=== PATIENT | male | born 1975 | race African-American/Black ===

== ENCOUNTER 2017-03-19 20:02 | Emergency (ER) | payer MEDICARE ==
[~2017-03-19] VITALS: Ht 190.5 cm; Wt 118.8 kg
[~2017-03-19 20:02] MED LIST: ACARBOSE25 MG PO; AMBIEN10 MG PO; ASPIRIN81 MG PO; BACTRIM 400-801 EACH PO; CALCIUM CARBON200 MG PO; CELLCEPT500 MG PO; CLONIDINE HCL0.3 MG PO; COREG12.5 MG PO; HUMALOG100 UNIT/1 SC; HUMALOG100 UNIT/1 SQ; HUMALOG100 UNIT/3 SQ; HUMULIN R100 UNIT/2 SQ; HYDRALAZINE HCL25 MG PO; HYDROCODON-ACE1 EA12 PO; LEVEMIR100 UNIT/1 SQ; NEXIUM10 MG PO; NEXIUM40 MG PO; NORCO 7.5-3251 EACH PO; OXYCONTIN10 MG PO; PREDNISONE5 MG PO; PROGRAF1 MG PO; TUMS300 MG PO; ZOLPIDEM TARTRA10 MG PO
[2017-03-19] MEDS ORDERED: DIATRIZOATE MEGL/DIATRIZOA SOD 30 ML BTL PO ONE (21:40)
[2017-03-19 22:45] LABS: BASOPHILS % 0.3 % (0.0-1.0); EOSINOPHILS # (AUTO) 0.2 (0.0-0.4); EOSINOPHILS % 3.1 % (0.0-6.0); HEMATOCRIT 37.9 % (38.2-49.6); HEMOGLOBIN 12.8 g/dL (14.0-18.0); LYMPHOCYTES # (AUTO) 1.5 (1.0-3.2); LYMPHOCYTES % 22.6 % (18.0-39.1); MEAN CORPUSCULAR HEMOGLOBIN 28.3 pg (28-32); MEAN CORPUSCULAR HGB CONC 33.8 g/dL (31-35); MEAN CORPUSCULAR VOLUME 83.8 fL (81-99); MONOCYTES # (AUTO) 0.6 (0.2-0.8); MONOCYTES % 9.1 % (4.4-11.3); NEUTROPHILS # (AUTO) 4.3 (2.1-6.9); NEUTROPHILS % 64.5 % (38.7-80.0); PLATELET COUNT 167 x10e3/uL (140-360); RED BLOOD COUNT 4.52 x10e6/uL (4.3-5.7); RED CELL DISTRIBUTION WIDTH 12.3 % (11.7-14.4)
[2017-03-19 22:48] LABS: INR 0.91; PROTHROMBIN TIME 12.7 seconds (11.9-14.5)
[2017-03-19 22:49] LABS: PARTIAL THROMBOPLASTIN TIME 26.4 seconds (23.8-35.5)
[2017-03-19 22:57] LABS: ALBUMIN 4.2 g/dL (3.5-5.0); ALBUMIN/GLOBULIN RATIO 1.1 (0.8-2.0); CALCIUM 8.4 mg/dL (8.4-10.2); CREATININE, SERUM 2.01 mg/dL (0.72-1.25)
[2017-03-19 23:44] LABS: BILIRUBIN,URINE NEGATIVE (NEGATIVE); KETONES,URINE NEGATIVE (NEGATIVE); LEUKOCYTE ESTERASE ,URINE NEGATIVE (NEGATIVE); NITRITE,URINE NEGATIVE (NEGATIVE); URINE UROBILINOGEN 0.2 mg/dL (0.2 - 1)
[2017-03-19 23:50] LABS: CLARITY,URINE CLEAR (CLEAR); COLOR,URINE YELLOW (YELLOW); PROTEIN,URINE DIPSTICK 1+ (NEGATIVE)
--- NOTE | 2017-03-19 23:52 | Diagnostic Imaging Report ---
EXAM: CT Abdomen and Pelvis WITHOUT contrast INDICATION: Incarcerated hernia COMPARISON: None. TECHNIQUE: Abdomen and pelvis were scanned utilizing a multidetector helical scanner from the lung base to the pubic symphysis without administration of IV contrast. Absence of intravenous contrast decreases sensitivity for detection of focal lesions and vascular pathology. Coronal and sagittal reformations were obtained. Routine protocol was performed. IV CONTRAST: None. ORAL CONTRAST: Gastrografin RADIATION DOSE: Total DLP: 807.46 mGy*cm Estimated effective dose: (DLP x 0.015 x size factor) mSv COMPLICATIONS: None FINDINGS: LINES and TUBES: None. LOWER THORAX: There is evidence of bilateral alveolar groundglass opacities with areas of mosaic attenuation. HEPATOBILIARY: No focal hepatic lesions. No biliary ductal dilation. GALLBLADDER: No radio-opaque stones or sludge. Gallbladder is contracted. No wall thickening. SPLEEN: No splenomegaly. PANCREAS: No focal masses or ductal dilatation. ADRENALS: No adrenal nodules KIDNEYS/URETERS: The kidneys are hypoplastic/atrophic. There is a left pelvic kidney. No hydronephrosis. No cystic or solid mass lesions. No stones. GI TRACT: No abnormal distention, wall thickening, or evidence of bowel obstruction. Appendix is normal. PELVIC ORGANS/BLADDER: Unremarkable. LYMPH NODES: No lymphadenopathy. VESSELS: There is mild atherosclerotic disease in the aorta and major arterial branches. PERITONEUM / RETROPERITONEUM: Evidence of right pelvic retroperitoneal postsurgical changes most likely from prior right renal pelvic transplant. BONES: There are degenerative changes in the lower lumbar spine. SOFT TISSUES: Area of focal skin thickening noted in the left lower quadrant best seen on series 2, image 72 compatible with cellulitis. There is a right inguinal fluid reservoir connected to a short visualized tubing most likely for erectile dysfunction device not visualized. IMPRESSION: 1. Groundglass opacities with mosaic attenuation the lung bases compatible with edema. 2. No evidence of incarcerated hernia. 3. Right inguinal bulging most likely represents a reservoir for an erectile dysfunction device. 4. Chronic medical renal disease without evidence of left pelvic transplant kidney. Signed by: Dr. Braeden Leal M.D. on 03/19/2017 11:48 PM
[2017-03-20 00:07] LABS: EPITHELIAL CELLS,URINE FEW /LPF; RBC,URINE 0-5 /HPF (0-5); WBC,URINE (MAN) 0-5 /HPF (0-5)
== END 2017-03-20 01:15 | disposition home or self-care (01) ==
LOC: ER 20:02
DX: T83.9XXA Unspecified complication of genitourinary prosthetic device, implant and graft, initial encounter (principal); R10.31 Right lower quadrant pain; E11.65 Type 2 diabetes mellitus with hyperglycemia; D86.9 Sarcoidosis, unspecified; Z94.0 Kidney transplant status
CPT/HCPCS: 36415; 74176; 80053; 81001; 82150; 83690; 85025; 85610; 85730; 87086; 99284

== ENCOUNTER → 2017-07-21 | Outpatient (CLI) | payer MEDICARE ==
[~2017-07-21] MED LIST changes: +FENTANYL CITRATE/PF 100MCG/2 ML INJ ONE; +FLUMAZENIL 0.5MG/ 5ML VIAL ONE; +INSULIN REGULAR, HUMAN 100 UNIT/1 ML 3ML VIAL ONE; +LACTATED RINGER'S 1,000 ML ONE; +MIDAZOLAM HCL 5MG/ML 2ML VIAL ONE; +PROPOFOL IV EMULSION 10 MG/ML 20 ML VIAL ONE
--- NOTE | 2017-07-21 14:36 | Diagnostic Imaging Report ---
History: Low back pain Comparison studies: CT abdomen 03/19/2017 Technique: Sagittal, coronal and axial T2 , sagittal T1 and IR, axial spin density oblique. Intravenous contrast: None Findings: Number of lumbar vertebral bodies:5 Alignment: Straightening of the normal lordosis. Grade 1 retrolisthesis of L5 over S1. No scoliosis. Soft tissues: No T2 hyperintense inflammatory changes. Atrophic changes of the bilateral kidneys. Paraspinal muscles: No signal abnormalities. No atrophy. Lower thoracic cord:Normal in signal and morphology. The tip of the conus is at T12-L1. Cauda equina: No masses. No arachnoiditis. Vertebrae: Normal in height and signal intensity. No compression fractures, infection or neoplasm. Degenerative changes: L1-L2: No abnormalities. L2-L3: No abnormalities. L3-L4: No abnormalities. L4-L5: Disc degeneration with loss of T2 signal. Mild diffuse disc bulge, mild facet hypertrophy and ligamentum flavum thickening results in no significant canal stenosis and mild left foraminal narrowing. L5-S1:None Disc degeneration with loss of T2 signal, decreased intervertebral space and mild Modic type I changes. Diffuse disc bulge with superimposed central disc protrusion and mild bilateral facet hypertrophy results in mild canal stenosis and severe bilateral foraminal narrowing more prominent on the left. Trace of fluid at the bilateral facet joints. Additional findings: None IMPRESSION: Severe bilateral foraminal narrowing at L5-S1 secondary to grade 1 retrolistheses, diffuse disc bulge and mild facet hypertrophy. Mild synovitis changes and moderate disc degeneration at L5-S1 with associated mild Modic type I change. Other mild degenerative changes as described above. Signed by: DR Bib Treadwell M.D. on 07/21/2017 2:32 PM
== END ==
LOC: MRI 07-08 09:58
PROVIDERS: ATTEND Anesthesiology Pain Medicine
DX: M43.07 Spondylolysis, lumbosacral region (principal); M54.5 Low back pain
CPT/HCPCS: 36415; 72148; 82948; J2250; J7120

== ENCOUNTER → 2018-12-08 | Outpatient (CLI) | payer MEDICARE ==
[~2018-12-08] MED LIST changes: -FENTANYL CITRATE/PF 100MCG/2 ML INJ ONE; -FLUMAZENIL 0.5MG/ 5ML VIAL ONE; -INSULIN REGULAR, HUMAN 100 UNIT/1 ML 3ML VIAL ONE; -LACTATED RINGER'S 1,000 ML ONE; +LORAZEPAM INJ 2 MG/ML VIAL ONE; -MIDAZOLAM HCL 5MG/ML 2ML VIAL ONE; -PROPOFOL IV EMULSION 10 MG/ML 20 ML VIAL ONE
== END ==
LOC: MRI 07:03
PROVIDERS: ATTEND Orthopaedic Surgery Sports Medicine
DX: M25.511 Pain in right shoulder (principal)
CPT/HCPCS: J2060

== ENCOUNTER → 2018-12-20 | Outpatient (CLI) | payer MEDICARE ==
[~2018-12-20] MED LIST changes: +LACTATED RINGER'S 1,000 ML ONE; -LORAZEPAM INJ 2 MG/ML VIAL ONE; +MIDAZOLAM HCL 5MG/ML 2ML VIAL ONE; +PROPOFOL IV EMULSION 10 MG/ML 20 ML VIAL ONE; +SODIUM CHLORIDE 0.9% 500ML 0 ML ONE
--- NOTE | 2018-12-20 14:48 | Diagnostic Imaging Report ---
TECHNIQUE: Magnetic resonance imaging of the RIGHT SHOULDER was performed WITHOUT injected contrast. COMPARISON: None available. HISTORY: Right shoulder pain FINDINGS: MUSCLES AND TENDONS: Rotator Cuff: Tendons: Partial-thickness articular sided tearing of the supraspinatus tendon. No full-thickness tear. Muscles: No focal muscle atrophy. Biceps Tendon: Long head biceps tenodesis. GLENOHUMERAL JOINT: Glenoid Labrum: Fraying of the superior and posterior labrum. Articular Cartilage: Partial-thickness cartilage loss AC JOINT AND ACROMION: Mild hypertrophic degenerative changes of the acromioclavicular joint. Subacromial spurring. BONE: No focal or infiltrative bone marrow replacing abnormality. No acute fracture. SOFT TISSUES: Subacromial subdeltoid bursal fluid. Infiltration of the rotator cuff interval and axillary recess. IMPRESSION: Supraspinatus partial-thickness articular sided tearing. No full-thickness tear or atrophy. Findings of adhesive capsulitis. Signed by: Dr. Chester Marks M.D. on 12/20/2018 2:45 PM
== END ==
LOC: MRI 09:49 → EDSTATUS 12:00
PROVIDERS: ATTEND Psychiatry & Neurology Neurology
DX: M25.511 Pain in right shoulder (principal)
CPT/HCPCS: 36415; 73221; 82948; J2704; J7121; J2250; J7040

== ENCOUNTER → 2019-01-04 | Day surgery (SDC) | payer MEDICARE ==
[2018-07-10 12:50] LABS: BASOPHILS % 0.3 % (0.0-1.0); EOSINOPHILS # (AUTO) 0.2 (0.0-0.4); EOSINOPHILS % 3.3 % (0.0-6.0); HEMATOCRIT 34.1 % (38.2-49.6); HEMOGLOBIN 11.8 g/dL (14.0-18.0); LYMPHOCYTES # (AUTO) 1.1 (1.0-3.2); LYMPHOCYTES % 17.1 % (18.0-39.1); MEAN CORPUSCULAR HEMOGLOBIN 28.9 pg (28-32); MEAN CORPUSCULAR HGB CONC 34.6 g/dL (31-35); MEAN CORPUSCULAR VOLUME 83.4 fL (81-99); MONOCYTES # (AUTO) 0.7 (0.2-0.8); MONOCYTES % 10.5 % (4.4-11.3); NEUTROPHILS # (AUTO) 4.5 (2.1-6.9); NEUTROPHILS % 68.2 % (38.7-80.0); PLATELET COUNT 154 x10e3/uL (140-360); RED BLOOD COUNT 4.09 x10e6/uL (4.3-5.7); RED CELL DISTRIBUTION WIDTH 12.2 % (11.7-14.4)
[~2019-01-04] MED LIST changes: +FENTANYL CITRATE/PF 100MCG/2 ML INJ ONE; -LACTATED RINGER'S 1,000 ML ONE; +LIDOCAINE HCL 2% LOCAL INJ 5 ML SDV VIAL INJ ONE; +MIDAZOLAM HCL 2 MG/2 ML VIAL ONE; -MIDAZOLAM HCL 5MG/ML 2ML VIAL ONE; -PROPOFOL IV EMULSION 10 MG/ML 20 ML VIAL ONE; +PROPOFOL IV EMULSION 10 MG/ML 50 ML VIAL ONE; -SODIUM CHLORIDE 0.9% 500ML 0 ML ONE
--- OUTSIDE RECORDS SUMMARY | 2019-01-04 08:42 | XMS REPORT | Summary of Care ---
Author Author Nadia Blue M.A. Organization Unknown Address Unknown Phone Unavailable Care Team Providers Care Shipping Associate Name Role Phone Nadia Blue M.A. Unavailable Unavailable ARJUN BAEZA MD Unavailable Unavailable [facility] Unavailable Unavailable Unavailable Unavailable Functional Status Name Dates Details Functional status health issues are not documented Status: Name Dates Details Cognitive status health issues are not documented Status: Problems Name Dates Details Other mechanical complication of surgically created arteriovenous fistula (996.1, T82.590A) Status: Active Localized swelling, mass or lump of trunk (R22.2) Status: Active End stage renal disease (585.6, N18.6) Status: Active Renal dialysis device, implant, or graft complication (996.73, T82.9XXA) Status: Active 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, 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: Active Postoperative examination (V67.00, Z09) Status: Active Dysphagia (787.20, R13.10) Status: Active Chronic GERD (530.81, K21.9) Status: Active Medications Name Dates Details Coreg TABS Active cloNIDine HCl TABS * Refills: 0 Active hydrALAZINE HCl TABS * Refills: 0 Active Norvasc 10 MG Oral Tablet * Refills: 0 Active Allergies and Adverse Reactions Name Dates Details Iodine SOLN (Allergy) Status: Active Past Medical History Name Dates Details History of congestive heart disease (V12.59, Z86.79) Status: Resolved History of Diabetes mellitus (250.00, E11.9) Status: Resolved History of End stage renal disease (585.6, N18.6) Status: Resolved History of essential hypertension (V12.59, Z86.79) Status: Resolved History of hyperlipidemia (V12.29, Z86.39) Status: Resolved 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, 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) Status: Resolved History of Postoperative examination (V67.00, Z09) Status: Resolved Personal history of asthma (V12.69, Z87.09) Status: Resolved Procedures Procedure Dates Details GI IRF Modified Esophagus Barium Swallow w/ Speech Therapy [id number] Date: 12-May-2018 History of Arteriovenous Surgery Open Revision Of AV Fistula Completed History of Renal Transplant Completed History of Nephrectomy Completed History of Surgery Vas Deferens Vasectomy Completed History of Creation Of AV Fistula - Nonautogenous Graft Completed History of Ligation Angioaccess Arteriovenous Fistula Completed History of Central IV With Catheters Through Two Tunneled Access Sites Completed History of Creation Of A-V Fistula - Autogenous Graft Completed History of Catheterization Of Extremity Artery For Dialysis Completed History of Catheterization Of Extremity Artery For Dialysis Completed History of Postoperative Arterial Excision Infected Graft In Extremity Completed History of Skin Debridement W/ SQ Tissue & Muscle At Site Of Open Fracture / Dislocation Completed Immunization Name Dates Details Immunizations not documented Family History Name Dates Details Family history of asthma (V17.5, Z82.5) Status: Active Name Dates Details Family history of Renal Failure Status: Active Social History Name Dates Details - Status: Name Dates Details Never smoker Smoker. current status unknown Vital Signs Date Test Result Details No Known Vitals to report Results Date Description Value Details Results not documented Plan of Care Name Dates Details Planned Observations Planned Goals not documented Instructions Name Dates Details Instructions not documented Encounters Appointment; RAFFAELE DAIGLE M.D. Encounter Diagnosis: Problem not documented On: 12-May-2018 9:30
--- OUTSIDE RECORDS SUMMARY | 2019-01-04 08:42 | XMS REPORT ---
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 Allergies, Adverse Reactions, Alerts Allergy Name Allergy Type Status Severity Reaction(s) Onset Date Inactive Date Treating Clinician Comments hydralazine DA Active U 2018-09-27 00:00:00 hydralazine DA Active U 2018-01-22 00:00:00 hydralazine DA Active U 2016-08-24 00:00:00 Medications This patient has no known medications. Results Test Description Test Time Test Comments Text Results Atomic Results Result Comments MRI SHOULDER RIGHT WO 2018-12-20 14:42:00 [facility] [address] [place] [id number] Patient Name: ROSIE NUGENT MR #: [id number] : 1975 Age/Sex: 43/M Req #: [id number] Adm Physician: Ordered by: AMADA CABALLERO MD Report #: [id number] Location: MRI Room/Bed: Procedure: [id number] MRI/MRI SHOULDER RIGHT WO Exam Date: Exam Time: REPORT STATUS: Signed TECHNIQUE: Magnetic resonance imaging of the RIGHT SHOULDER was performed WITHOUT injected contrast. COMPARISON: None available. HISTORY: Right shoulder pain FINDINGS: MUSCLES AND TENDONS: Rotator Cuff: Tendons: Partial-thickness articular sided tearing of the supraspinatus tendon. No full-thickness tear. Muscles: No focal muscle atrophy. Biceps Tendon: Long head biceps tenodesis. GLENOHUMERAL JOINT: Glenoid Labrum: Fraying of the superior and posterior labrum. Articular Cartilage: Partial-thickness cartilage loss AC JOINT AND ACROMION: Mild hypertrophic degenerative changes of the acromioclavicular joint. Subacromial spurring. BONE: No focal or infiltrative bone marrow replacing abnormality. No acute fracture. SOFT TISSUES: Subacromial subdeltoid bursal fluid. Infiltration of the rotator cuff interval and axillary recess. IMPRESSION: Supraspinatus partial-thickness articular sided tearing. No full-thickness tear or atrophy. Findings of adhesive capsulitis. Signed by: Dr. Rosa Chua M.D. on 12/20/2018 2:45 PM Dictated By: ROSA CHUA MD 44 Transcribed By: KHADRA on 12/20/181444 COPY TO: AMADA CABALLERO MD GLUBED 2018-10-31 09:39:00 GLUBED (test code=GLUBED) 166 mg/dL 60-125 [id number] 06:54:00* Test Item Value Reference Range Comments GLUBED (test code=GLUBED) 169 mg/dL 60-125 - XR SHOULDER 2 + V [id number] 08:50:00 FAX: Leslie Escalante MD [phone] [place]: [place] St: REG FAX: Timbo Casillas [phone] Name: ROSIE NUGENT [facility] FSED : 1975 Age/S: 42/M [address] [facility] [address] Unit #: [id number] Loc: [facility] [address] Phys: Timbo Casillas MD [place], [place] [address] Acct: [id number] Dis Date: Status: REG ER PHONE #: Exam Date: 09/27/2018829 FAX #: Reason: shoulder pain EXAMS: CPT CODE: [id number] XR SHOULDER 2 + [place] [address] HISTORY: Shoulder pain. COMPARISON: None available. 3 views of the right shoulder: No acute fracture or dislocation. Shoulder and AC joints are preserved. Scapula, glenoid and coracoid are normal. Soft tissues and mineralization are normal. Visualize d lungs are clear. IMPRESSION: No acute fractu re or dislocation. Joint spaces are preserved. at 0850 Reported and signed by: Bola Azul M.D. CC: Leslie Barlow MD; Timbo Ochoa MD Technologist: Tariq Leon Trnmord Date/Time/By: 09/27/2018 (0850) : By: [email or web address] Orig Print D/T: S: 09/27/2018 (0853) PAGE 1 Signed Report - XR UGI W/AIR W/O [id number] 09:58:00 FAX: Jez Catalan MD [phone] [place]: St: PRE FAX: Leslie Escalante MD [phone] Name: ROSIE NUGENT [facility] : 1975 Age/S: 42/M [address] [facility] Unit #: [id number] Loc: [facility] [place] [address] Phys: Jez Smith MD Acct: [id number] Dis Date: Status: PRE CLI PHONE #: [phone] Exam Date: 07/12/2018909 FAX #: [phone] Reason: DYSPHAGIA EXAMS: CPT CODE: [id number] XR UGI W/AIR W/O [id number] HISTORY: Dysphagia. COMPARISON: CT scan from January 22, 2018. Esophagus demonstrating persistent stricture in the distal third with shouldering of the proximal esophagus at that level. The narrowing is less than 1 cm. Direct visualization is recommended. No esophagitis or ulceration. No reflux. Stomach distended well with free passage of contrast through the pyloric channel. No gastritis. Rugal folds are normal. The duodenal bulb and sweep are unremarkable as well with free passage of contrast. IMPRESSION: Tight esophageal stricture measuring less than 1 cm in the distal third of the esophagus with proximal shouldering of the esophagus. No reflux. No e sophagitis. No gastritis. No duodenitis. Fluoroscopy time util ized was 1.6 minutes and 33 images were obtained during the study. at 0958 Reported and signed by: Bola Azul M.D. CC: Jez Smith MD; Leslie Barlow MD Technologist: RT PERCY(R) Trnscrd Date/Time/By: 07/12/2018 (0 958) : By: [email or web address] Orig Print D/T: S: 07/12/2018 (1000) PAGE 1 Signed Report URINALYSIS W/O [id number] 15:11:00* Test Item Value Reference Range Comments UA COLOR (test code=COLU) YELLOW YELLOW UA APPEARANCE (test code=APPU) CLEAR CLEAR UA GLUCOSE DIPSTICK (test code=DGLUU) NEGATIVE mg/dL NEGATIVE UA BILIRUBIN DIPSTICK (test code=BILU) NEGATIVE NEGATIVE UA KETONE DIPSTICK (test code=KETU) NEGATIVE mg/dL NEGATIVE UA SPECIFIC GRAVITY (test code=SGU) <=1.005 1.001-1.035 UA BLOOD DIPSTICK (test code=MARY GRACE) NEGATIVE NEGATIVE UA PH DIPSTICK (test code=LEWIS) 6.5 5.0-8.0 UA PROTEIN DIPSTICK (test code=PROU) NEGATIVE mg/dL Neg-15 UA UROBILINIOGEN DIPSTICK (test code=URO) 0.2 mg/dL 0.0-0.2 UA NITRITE DIPSTICK (test code=TRENT) NEGATIVE NEGATIVE UA LEUKOCYTE ESTERASE DIPSTICK (test code=LEUU) NEGATIVE uL NEGATIVE UA MICROSCOPIC NEEDED? (test code=UAMICRO) NO, NOT INDICATED UA MICROSCOPIC NOT INDICATED UA MICROSCOPIC EXAMS ARE NOT PERFORMED UNLESS ONE OF THECHEMICAL TESTS OR VISUAL EXAMINATION IS ABNORMAL. THE MICROSCOPIC EVALUATIONS ARE PERFORMED ON ALL ABNORMALRESULTS AND/OR WHEN SPECIFICALLY ORDERED BY A PHYSICIAN. [id number] 15:05:00* Test Item Value Reference Range Comments TROPONIN-I (test code=TROPI) <0.015 ng/mL 0.00-0.056 URINALYSIS W/O [id number] 14:08:00* Test Item Value Reference Range Comments UA COLOR (test code=COLU) YELLOW YELLOW UA APPEARANCE (test code=APPU) CLEAR CLEAR UA GLUCOSE DIPSTICK (test code=DGLUU) NEGATIVE mg/dL NEGATIVE UA BILIRUBIN DIPSTICK (test code=BILU) NEGATIVE NEGATIVE UA KETONE DIPSTICK (test code=KETU) NEGATIVE mg/dL NEGATIVE UA SPECIFIC GRAVITY (test code=SGU) <=1.005 1.001-1.035 UA BLOOD DIPSTICK (test code=MARY GRACE) NEGATIVE NEGATIVE UA PH DIPSTICK (test code=LEWIS) 6.5 5.0-8.0 UA PROTEIN DIPSTICK (test code=PROU) NEGATIVE mg/dL Neg-15 UA UROBILINIOGEN DIPSTICK (test code=URO) 0.2 mg/dL 0.0-0.2 UA NITRITE DIPSTICK (test code=TRENT) NEGATIVE NEGATIVE UA LEUKOCYTE ESTERASE DIPSTICK (test code=LEUU) NEGATIVE uL NEGATIVE UA MICROSCOPIC NEEDED? (test code=UAMICRO) [id number] 13:35:00* Test Item Value Reference Range Comments TROPONIN-I (test code=TROPI) <0.015 ng/mL 0.00-0.056 PROTHROMBIN [id number] 12:23:00* Test Item Value Reference Range Comments PROTHROMBIN TIME PATIENT (test code=PTP) 9.9 seconds 9.0-13.0 INTERNATIONAL NORMAL RATIO (test code=INR) 1.0 0.8-1.2 The therapeutic range for oral anticoagulant therapy formost indications is an international normalized ratio (INR)of between 2.0 and 3.0. The recommended therapeutic INRrange for various clinical situations is listed below: Clinical Situation INR range Pulmonary e mbolism treatment (2.0-3.0)Venous thrombosis treatmentVenous thrombosis prophylaxis (high risk surgery)Prevention of systemic embolism from: Acute myocardial infarction Valvular heart disease Atrial fibrillation Mechanical prosthetic heart valves (2.5-3.5) IS PATIENT ON ANTICOAGULANTS? NTHROMBOPLASTIN TIME [id number] 12:23:00* Test Item Value Reference Range Comments THROMBOPLASTIN TIME PARTIAL (test code=PTT) 25.0 seconds 25.5-34.3 Therapeutic Range for patients on Heparin Therapy is 2 to2.5 times their baseline PTT level. IS PATIENT ON ANTICOAGULANTS? NCOMPREHENSIVE METABOLIC [id number] 12:22:00 * Test Item Value Reference Range Comments SODIUM (test code=NA) 135 mmol/L 128-145 POTASSIUM (test code=K) 5.7 mmol/L 3.5-5.1 CHLORIDE (test code=CL) 98.0 mmol/L 98-107 CARBON DIOXIDE (test code=CO2) 24.5 mmol/L 22-29 ANION GAP (test code=GAP) 18 mmol/L 10-20 GLUCOSE (test code=GLU) 244 mg/dL 70-110 BLOOD UREA NITROGEN (test code=BUN) 24 mg/dL 7-22 CREATININE (test code=CREAT) 1.69 mg/dL 0.55-1.3 BUN/CREATININE RATIO (test code=BUN/CREA) 14.2 10-20 TOTAL PROTEIN (test code=PROT) 7.6 gram/dL 6.1-7.8 ALBUMIN (test code=ALB) 4.0 g/dL 3.3-4.4 GLOBULIN (test code=GLOB) 3.6 G/DL 1-10 ALBUMIN/GLOBULIN RATIO (test code=A/G) 1.1 0.75-1.50 CALCIUM (test code=CA) 6.7 mg/dL 8.0-10.5 BILIRUBIN TOTAL (test code=BILT) 0.60 mg/dL 0.2-1.2 SGOT/AST (test code=AST) 30 U/L 10-39 SGPT/ALT (test code=ALT) 26 U/L 10-69 ALKALINE PHOSPHATASE TOTAL (test code=ALKP) 77 U/L 50-139 [id number] 12:22:00* Test Item Value Reference Range Comments LIPASE (test code=LIP) 107 Unit/L 144-286 COMPREHENSIVE METABOLIC [id number] 12:18:00* Test Item Value Reference Range Comments SODIUM (test code=NA) 135 mmol/L 128-145 POTASSIUM (test code=K) 5.7 mmol/L 3.5-5.1 CHLORIDE (test code=CL) 98.0 mmol/L 98-107 CARBON DIOXIDE (test code=CO2) 24.5 mmol/L 22-29 ANION GAP (test code=GAP) 18 mmol/L 10-20 GLUCOSE (test code=GLU) 244 mg/dL 70-110 BLOOD UREA NITROGEN (test code=BUN) 24 mg/dL 7-22 CREATININE (test code=CREAT) 1.69 mg/dL 0.55-1.3 BUN/CREATININE RATIO (test code=BUN/CREA) 14.2 10-20 TOTAL PROTEIN (test code=PROT) gram/dL 6.4-8.2 ALBUMIN (test code=ALB) g/dL 3.4-5.0 GLOBULIN (test code=GLOB) G/DL 1-10 ALBUMIN/GLOBULIN RATIO (test code=A/G) 0.75-1.50 CALCIUM (test code=CA) 6.7 mg/dL 8.0-10.5 BILIRUBIN TOTAL (test code=BILT) mg/dL 0.0-1.0 SGOT/AST (test code=AST) IUnit/L 15-37 SGPT/ALT (test code=ALT) IUnit/L 12-78 ALKALINE PHOSPHATASE TOTAL (test code=ALKP) IUnit/L 45-117 [id number] 12:18:00* Test Item Value Reference Range Comments LIPASE (test code=LIP) U/L 73.0-393.0 CBC W/AUTO [id number] 12:06:00* Test Item Value Reference Range Comments WHITE BLOOD CELL (test code=WBC) 7.2 K/mm3 4.5-12.5 RED BLOOD CELL (test code=RBC) 4.25 mill/mm3 4.0-5.8 HEMOGLOBIN (test code=HGB) 12.1 gram/dL 13.0-17.5 HEMATOCRIT (test code=HCT) 35.7 % 42.0-52.0 MEAN CELL VOLUME (test code=MCV) 84.0 fL 80-98 MEAN CELL HGB (test code=MCH) 28.5 picogram 27.0-33.0 MEAN CELL HGB CONCETRATION (test code=MCHC) 33.9 gram/dL 33.0-36.0 RED CELL DISTRIBUTION WIDTH (test code=RDW) 12.0 % 11.6-16.2 RED CELL DISTRIBUTION WIDTH SD (test code=RDW-SD) 36.8 fL 37.0-51.0 PLATELET COUNT (test code=PLT) 151 K/mm3 150-450 MEAN PLATELET VOLUME (test code=MPV) 10.6 fL 6.7-11.0 NEUTROPHIL % (test code=NT%) 73.3 % 39.0-69.0 LYMPHOCYTE % (test code=LY%) 14.7 % 25.0-55.0 MONOCYTE % (test code=MO%) 8.9 % 0.0-10.0 EOSINOPHIL % (test code=EO%) 2.5 % 0.0-5.0 BASOPHIL % (test code=BA%) 0.3 % 0.0-1.0 NEUTROPHIL # (test code=NT#) 5.27 K/mm3 1.8-7.7 LYMPHOCYTE # (test code=LY#) 1.06 K/mm3 1.0-5.0 MONOCYTE # (test code=MO#) 0.64 K/mm3 0-0.8 EOSINOPHIL # (test code=EO#) 0.18 K/mm3 0.0-0.5 BASOPHIL # (test code=BA#) 0.02 K/mm3 0.0-0.2 RAD, CHEST, 1 VIEW, NON [id number] 10:39:00Reason for exam:->CHEST PAINchest tightnss and sob since last night, with slight nauseaShould this be performed at the bedside?->NoFINAL REPORT Chest one view Discussion: Heart, lungs, bones, soft tissues unremarkable. No effusion or pneumothorax. Signed: Kiki Khan Verified Date/Time: 08/10/2017 10:39:43 Reading Location: [facility] Radiology Reading Room D [id number] 10:33:00* Test Item Value Reference Range Comments RAPID CKMB (BEAKER) (test hvps=9991) 1.8 ng/mL 0.0-4.3 RAPID TROPONIN [id number] 10:33:00* Test Item Value Reference Range Comments RAPID TROPONIN I (BEAKER) (test fgah=9842) < ng/mL <0.05 CBC W/PLT COUNT & AUTO [id number] 10:28:00* Test Item Value Reference Range Comments WHITE BLOOD CELL COUNT (BEAKER) (test bjdq=837) 5.8 10e3/i? L 4.0-10.0 RED BLOOD CELL COUNT (BEAKER) (test rris=204) 4.40 10e6/i? L 4.20-5.80 HEMOGLOBIN (BEAKER) (test sbsr=156) 12.3 g/dL 13.0-16.8 HEMATOCRIT (BEAKER) (test qbcu=011) 37.4 % 40.0-50.0 MEAN CORPUSCULAR VOLUME (BEAKER) (test ubrn=005) 85.1 fL 82.0-98.0 MEAN CORPUSCULAR HEMOGLOBIN (BEAKER) (test boyq=728) 27.9 pg 27.0-33.0 MEAN CORPUSCULAR HEMOGLOBIN CONC (BEAKER) (test pkfl=347) 32.8 g/dL 32.0-36.0 RED CELL DISTRIBUTION WIDTH (BEAKER) (test ydfk=872) 13.2 % 10.3-14.2 PLATELET COUNT (BEAKER) (test jsfi=245) 151 10e3/i? L 150-430 MEAN PLATELET VOLUME (BEAKER) (test fpks=397) 7.8 fL 6.5-10.5 NEUTROPHILS RELATIVE PERCENT (BEAKER) (test cbli=195) 67 % LYMPHOCYTES RELATIVE PERCENT (BEAKER) (test iudn=906) 19 % MONOCYTES RELATIVE PERCENT (BEAKER) (test cohy=341) 9 % EOSINOPHILS RELATIVE PERCENT (BEAKER) (test xfez=247) 4 % BASOPHILS RELATIVE PERCENT (BEAKER) (test kfde=563) 0 % NEUTROPHILS ABSOLUTE COUNT (BEAKER) (test lvws=955) 3.87 10e3/i? L 1.80-8.00 LYMPHOCYTES ABSOLUTE COUNT (BEAKER) (test crsk=478) 1.11 10e3/i? L 1.48-4.50 MONOCYTES ABSOLUTE COUNT (BEAKER) (test tplx=872) 0.54 10e3/i? L 0.00-1.30 EOSINOPHILS ABSOLUTE COUNT (BEAKER) (test ntdc=573) 0.22 10e3/i? L 0.00-0.50 BASOPHILS ABSOLUTE COUNT (BEAKER) (test blkz=665) 0.02 10e3/i? L 0.00-0.20 COMPREHENSIVE METABOLIC [id number] 10:28:00* Test Item Value Reference Range Comments TOTAL PROTEIN (BEAKER) (test jtpx=822) 7.1 gm/dL 6.0-8.5 ALBUMIN (BEAKER) (test yeju=1695) 4.3 g/dL 3.5-5.0 ALKALINE PHOSPHATASE (BEAKER) (test yzcw=830) 71 U/L 30-115 BILIRUBIN TOTAL (BEAKER) (test cwxc=678) 0.9 mg/dL 0.1-1.2 SODIUM (BEAKER) (test znpg=258) 136 meq/L 135-148 POTASSIUM (BEAKER) (test dfpl=886) 4.5 meq/L 3.6-5.5 CHLORIDE (BEAKER) (test dwsw=707) 97 meq/L 98-106 CO2 (BEAKER) (test eihc=022) 28 meq/L 24-32 BLOOD UREA NITROGEN (BEAKER) (test mztq=975) 24 mg/dL 10-26 CREATININE (BEAKER) (test klmi=532) 1.59 mg/dL 0.50-1.20 GLUCOSE RANDOM (BEAKER) (test tsuo=467) 341 mg/dL 70-110 CALCIUM (BEAKER) (test vbrj=061) 7.5 mg/dL 8.5-10.5 AST (SGOT) (BEAKER) (test fjpp=146) 16 U/L 5-40 ALT (SGPT) (BEAKER) (test jcda=388) 20 U/L 5-50 EGFR (BEAKER) (test bxdv=1374) 59 mL/min/1.73 sq m ESTIMATED GFR IS NOT ACCURATE CREATININE CLEARANCE IN PREDICTING GLOMERULAR FILTRATION RATE. ESTIMATED GFR IS NOT APPLICABLE FOR DIALYSIS PATIENTS. B-TYPE NATRIURETIC FACTOR (BNP)2017-08-10 10:28:00* Test Item Value Reference Range Comments B-TYPE NATRIURETIC PEPTIDE (BEAKER) (test fkqz=336) 20 pg/mL 0-100 PROTHROMBIN TIME/[id number] 10:20:00* Test Item Value Reference Range Comments PROTIME (BEAKER) (test kfpm=164) 10.2 seconds 9.8-12.0 INR (BEAKER) (test xutx=124) 0.9 <=5.9 RECOMMENDED COUMADIN/WARFARIN INR THERAPY RANGESSTANDARD DOSE: 2.0 - 3.0 Inclu ciera: PROPHYLAXIS for venous thrombosis, systemic embolization; TREATMENT for bertram ous thrombosis and/or pulmonary embolus.HIGH RISK: Target INR is 2.5-3.5 for pat ients with mechanical heart valves.MRI SPINE LUMBAR WO [facility] [address] [place] [address] Patient Name: ROSIE NUGENT MR #: [id number] : 1975 Age/Sex: 41/M Req #: [id number] Adm Physician: Ordered by: ALEXIS IQBAL M.D. Report #: [id number] Location: MRI Room/Bed: Procedure: [id number] MRI/MRI SPINE LUMBAR WO Ex am Date: Exam Time: REPORT STATUS: Signed History: Low back pain Comparison studies: CT abdomen 03/19/2017 Technique: Sagittal, coronal and axial T2 , sagittal T1 and IR, axial spin density o blique. Intravenous contrast: None Findings: Number of lumbar verteb ral bodies:5 Alignment: Straightening of the normal lordosis. Grade 1 retro listhesis of L5 over S1. No scoliosis. Soft tissues: No T2 hyperintense infl ammatory changes. Atrophic changes of the bilateral kidneys. Paraspinal musc les: No signal abnormalities. No atrophy. Lower thoracic cord:Normal in signa l and morphology. The tip of the conus is at T12-L1. Cauda equina: No mass es. No arachnoiditis. Vertebrae: Normal in height and signal intensity. No compression fractures, infection or neoplasm. Degenerative changes: L1-L2: No abnormalities. L2-L3: No abnormalities. L3-L4: No ab normalities. L4-L5: Disc degeneration with loss of T2 signal. Mild diffus e disc bulge, mild facet hypertrophy and ligamentum flavum thickening results in no significant canal stenosis and mild left foraminal narrowing. L5-S1 :None Disc degeneration with loss of T2 signal, decreased intervertebral space and mild Modic type I changes. Diffuse disc bulge with superimposed central d isc protrusion and mild bilateral facet hypertrophy results in mild canal sten osis and severe bilateral foraminal narrowing more prominent on the left. Trac e of fluid at the bilateral facet joints. Additional findings: None IMPRESSION: Severe bilateral foraminal narrowing at L5-S1 secondary to gr glo 1 retrolistheses, diffuse disc bulge and mild facet hypertrophy. Mild synovitis changes and moderate disc degeneration at L5-S1 with associated mild Modic type I change. Other mild degenerative changes as described above. Signed by: DR Jenny Treadwell M.D. on 07/21/2017 2:32 PM Dictated By : JENNY NAGY MD 1432 COPY TO: ALEXIS IQBAL M.D. CT ABDOMEN/PELVIS WO [place] [address] Patient Name: ROSIE NUGENT MR #: [id number] : 1975 Age/Sex: 41/M Req #: [id number] Adm Physician: Ordered by: RAFFAELE SANTOS MD Report #: [id number] Location: ER Room/Bed: Procedure: [id number] CT/CT ABDOMEN/PELVIS WO Exam Date: 03/19/17 Exam Time: 5 REPORT STATUS: Signed EXAM: CT Abdomen and Pelvis WITHOUT contrast INDICATION: I ncarcerated hernia COMPARISON: None. TECHNIQUE: Abdomen and pelvis were scan fred utilizing a multidetector helical scanner from the lung base to the pubic symphysis without administration of IV contrast. Absence of intravenous contra st decreases sensitivity for detection of focal lesions and vascular pathology . Coronal and sagittal reformations were obtained. Routine protocol was perfor med. IV CONTRAST: None. ORAL CONTRAST: Gastrografin RADIATION DOSE: Total DLP: 807.46 mGy*cm Estimated effective dose: (DLP x 0.015 x size factor) mSv COMPLICATIONS: No ne FINDINGS: LINES and TUBES: None. LOWER THORAX: There is evide nce of bilateral alveolar groundglass opacities with areas of mosaic attenuati on. HEPATOBILIARY: No focal hepatic lesions. No biliary ductal dilatio n. GALLBLADDER: No radio-opaque stones or sludge. Gallbladder is contracte d. No wall thickening. SPLEEN: No splenomegaly. PANCREAS: No focal masses or ductal dilatation. ADRENALS: No adrenal nodules KIDNEY S/URETERS: The kidneys are hypoplastic/atrophic. There is a left pelvic kidney . No hydronephrosis. No cystic or solid mass lesions. No stones. GI TRACT: No abnormal distention, wall thickening, or evidence of bowel obstruction. Appendix is normal. PELVIC ORGANS/BLADDER: Unremarkable. LYMPH NOD ES: No lymphadenopathy. VESSELS: There is mild atherosclerotic disease in t he aorta and major arterial branches. PERITONEUM / RETROPERITONEUM: Evide nce of right pelvic retroperitoneal postsurgical changes most likely from prio r right renal pelvic transplant. BONES: There are degenerative changes in t he lower lumbar spine. SOFT TISSUES: Area of focal skin thickening noted in the left lower quadrant best seen on series 2, image 72 compatible with cellu litis. There is a right inguinal fluid reservoir connected to a short visual ized tubing most likely for erectile dysfunction device not visualized. IMPRESSION: 1. Groundglass opacities with mosaic attenuation the lung bases compatible with edema. 2. No evidence of incarcerated hernia. 3. Right inguinal bulging most likely represents a reservoir for an erectile dysfunctio n device. 4. Chronic medical renal disease without evidence of left pelvic tr ansplant kidney. Signed by: Dr. Braeden Leal M.D. on 03/19/2017 11:48 PM Dictated By: BRAEDEN JAUREGUI MD 47 Transcribed By: KHADRA on 03/19/172347 CO PY TO: RAFFAELE SANTOS MD CHEST 2 VIEWS [place] [address] Patient Name: ROSIE NUGENT MR #: [id number] : 1975 Age/Sex: 41/M Req #: [id number] [facility] Physician: Ordered by: MARS GONZALEZ MD Report #: [id number] Location: OR Room/Bed: Procedure: [id number] DX/CHEST 2 VIEWS Exam D ate: 11/25/16 Exam Time: 1115 REPORT STATUS: Si gned PROCEDURE: Frontal and lateral views of the chest. COMPARISON: INDICATIONS: PRE-OP FINDINGS: Lines/tubes: None. Lungs: The lungs are well inflated and clear. There is no evidence of p neumonia or pulmonary edema. Pleura: There is no pleural effusion or pneu mothorax. Heart and mediastinum: The heart and the mediastinum are normal . Bones: No acute bony abnormality. IMPRESSION: 1. No acute cardiopulmonary disease. Dictated by: Darshana Murphy M.D. on 11/25/2016 at 11:59 Electronically approved by: Darshana Murphy M.D. on 11/25/2016 a t 11:59 Dictated By: DARSHANA MURPHY MD Electronically Tiffany d By: DARSHANA MURPHY MD on 11/25/16 1159 Transcribed By: VICKY on 11/25/16 11 59 COPY TO: MARS GONZALEZ MD
[2019-01-04 10:09] LABS: ANION GAP 13.9 mmol/L (8-16); BLOOD UREA NITROGEN 10 mg/dL (7-26); BUN/CREATININE RATIO 7 (6-25); CALCIUM 8.1 mg/dL (8.4-10.2); CARBON DIOXIDE 25 mmol/L (22-29); CHLORIDE 97 mmol/L (98-107); CREATININE, SERUM 1.36 mg/dL (0.72-1.25); EST GLOMERULAR FILTRATION RATE > 60 ML/MIN (60-); GLUCOSE 175 mg/dL (74-118); POTASSIUM 3.9 mmol/L (3.5-5.1); SODIUM 132 mmol/L (136-145)
[2019-01-04 12:05] VITALS: BP 134/96
== END | disposition home or self-care (01) ==
LOC: OR 08:39
PROVIDERS: ATTEND Internal Medicine
DX: R13.10 Dysphagia, unspecified (principal); K22.2 Esophageal obstruction; K21.0 Gastro-esophageal reflux disease with esophagitis; D86.9 Sarcoidosis, unspecified; E66.9 Obesity, unspecified; E11.22 Type 2 diabetes mellitus with diabetic chronic kidney disease; I12.9 Hypertensive chronic kidney disease with stage 1 through stage 4 chronic kidney disease, or unspecified chronic kidney disease; N18.3 Chronic kidney disease, stage 3 (moderate); K58.9 Irritable bowel syndrome, unspecified; Z94.0 Kidney transplant status; J45.909 Unspecified asthma, uncomplicated; G47.33 Obstructive sleep apnea (adult) (pediatric); Z88.5 Allergy status to narcotic agent; Z88.8 Allergy status to other drugs, medicaments and biological substances; Z01.810 Encounter for preprocedural cardiovascular examination; Z01.812 Encounter for preprocedural laboratory examination; Z68.29 Body mass index [BMI] 29.0-29.9, adult; Z79.4 Long term (current) use of insulin
CPT/HCPCS: 36415 ×2; 43239; 80048; 82948; 85025; 93005 ×2; J2001; J2250; J2704; J3010

== ENCOUNTER → 2020-04-18 | Outpatient (CLI) | payer MEDICARE ==
[~2020-04-18] MED LIST changes: +LACTATED RINGER'S 1,000 ML ONE; -LIDOCAINE HCL 2% LOCAL INJ 5 ML SDV VIAL INJ ONE; +MIDAZOLAM HCL 5 MG/ML VIAL ONE; -PROPOFOL IV EMULSION 10 MG/ML 50 ML VIAL ONE
== END ==
LOC: MRI 08:52
PROVIDERS: ATTEND Anesthesiology Pain Medicine
DX: M54.12 Radiculopathy, cervical region (principal); R94.31 Abnormal electrocardiogram [ECG] [EKG]; Z11.52 Encounter for screening for COVID-19
CPT/HCPCS: 72141; 93005; J7121; U0002; J2250; J3010

== ENCOUNTER → 2021-03-23 | Day surgery (SDC) | payer MEDICARE ==
[2021-03-20 10:35] LABS: BASOPHILS % 0.5 % (0.0-1.0); EOSINOPHILS # (AUTO) 0.2 (0.0-0.4); EOSINOPHILS % 3.9 % (0.0-6.0); HEMATOCRIT 34.4 % (38.2-49.6); LYMPHOCYTES # (AUTO) 1.2 (1.0-3.2); LYMPHOCYTES % 20.8 % (18.0-39.1); MEAN CORPUSCULAR HEMOGLOBIN 28.2 pg (28-32); MEAN CORPUSCULAR VOLUME 88.2 fL (81-99); MONOCYTES # (AUTO) 0.7 (0.2-0.8); NEUTROPHILS # (AUTO) 3.5 (2.1-6.9); NEUTROPHILS % 61.1 % (38.7-80.0); PLATELET COUNT 138 x10e3/uL (140-360); RED CELL DISTRIBUTION WIDTH 12.1 % (11.7-14.4)
[~2021-03-23] MED LIST changes: +ACARBOSE PO; +BACLOFEN20 MG PO; +CHLORDIAZEPOXIDE/CLIDINIUM 1 CAP PO ONE; -FENTANYL CITRATE/PF 100MCG/2 ML INJ ONE; +FUROSEMIDE40 MG PO; +KETAMINE HCL INJ 50 MG/ML 10 ML VIAL ONE; -LACTATED RINGER'S 1,000 ML ONE; +METOCLOPRAMIDE HCL 10 MG/2ML VIAL ONE; -MIDAZOLAM HCL 2 MG/2 ML VIAL ONE; -MIDAZOLAM HCL 5 MG/ML VIAL ONE; +NYSTATIN SUSPENSION 5 ML UDC PO ONE; +PROPOFOL IV EMULSION 10 MG/ML 20 ML VIAL ONE; +SODIUM BICARBO650 MG PO; +TUMS ULTRA400 MG PO
[2021-03-23 14:05] VITALS: BP 144/82
== END | disposition home or self-care (01) ==
LOC: OR 09:10
PROVIDERS: ATTEND Internal Medicine Gastroenterology
DX: K29.60 Other gastritis without bleeding (principal); K25.9 Gastric ulcer, unspecified as acute or chronic, without hemorrhage or perforation; R13.10 Dysphagia, unspecified; K31.84 Gastroparesis; K31.89 Other diseases of stomach and duodenum; K22.89 Other specified disease of esophagus; G47.33 Obstructive sleep apnea (adult) (pediatric); E11.9 Type 2 diabetes mellitus without complications; J45.909 Unspecified asthma, uncomplicated; I25.10 Atherosclerotic heart disease of native coronary artery without angina pectoris; I10 Essential (primary) hypertension; D86.9 Sarcoidosis, unspecified; Z88.8 Allergy status to other drugs, medicaments and biological substances; Z88.6 Allergy status to analgesic agent; Z91.041 Radiographic dye allergy status; Z01.810 Encounter for preprocedural cardiovascular examination; Z01.812 Encounter for preprocedural laboratory examination; Z20.822 Contact with and (suspected) exposure to COVID-19; Z79.4 Long term (current) use of insulin; Z79.899 Other long term (current) drug therapy; Z68.31 Body mass index [BMI] 31.0-31.9, adult; Z96.41 Presence of insulin pump (external) (internal); Z95.5 Presence of coronary angioplasty implant and graft; Z85.528 Personal history of other malignant neoplasm of kidney; Z94.0 Kidney transplant status
CPT/HCPCS: 36415 ×2; 43239; 82948; 85025; 88112; 88305; 88312; 93005; C9113; J2704; J2765; U0002; 43235; 88300; 88304

== ENCOUNTER 2021-05-30 20:34 | Emergency (ER) | payer MEDICARE, OTHER ==
[~2021-05-30] VITALS: Ht 190.5 cm; Wt 118.8 kg
[~2021-05-30 20:34] MED LIST changes: -CHLORDIAZEPOXIDE/CLIDINIUM 1 CAP PO ONE; -KETAMINE HCL INJ 50 MG/ML 10 ML VIAL ONE; -METOCLOPRAMIDE HCL 10 MG/2ML VIAL ONE; -NYSTATIN SUSPENSION 5 ML UDC PO ONE; -PROPOFOL IV EMULSION 10 MG/ML 20 ML VIAL ONE
[2021-05-30] MEDS ORDERED: TRAMADOL HCL 50 MG TAB PO STA (21:07)
[2021-05-30] MEDS ORDERED: HYDROMORPHONE 1MG/1ML INJ IM STA (23:22)
[2021-05-31 00:09] VITALS: BP 160/103
== END 2021-05-31 00:11 | disposition home or self-care (01) ==
LOC: ER 21:02
DX: M54.2 Cervicalgia (principal); S13.4XXA Sprain of ligaments of cervical spine, initial encounter; X50.0XXA Overexertion from strenuous movement or load, initial encounter; Y92.89 Other specified places as the place of occurrence of the external cause; G47.39 Other sleep apnea; Z94.0 Kidney transplant status
CPT/HCPCS: 71250; 72125; 93005; 99283; J1170

== ENCOUNTER → 2021-12-11 | Day surgery (SDC) | payer MEDICARE ==
[2021-12-09 12:19] LABS: BASOPHILS % 0.3 % (0.0-1.0); EOSINOPHILS # (AUTO) 0.2 (0.0-0.4); EOSINOPHILS % 2.8 % (0.0-6.0); HEMOGLOBIN 11.4 g/dL (14.0-18.0); LYMPHOCYTES # (AUTO) 0.8 (1.0-3.2); LYMPHOCYTES % 14.1 % (18.0-39.1); MEAN CORPUSCULAR HEMOGLOBIN 28.3 pg (28-32); MEAN CORPUSCULAR HGB CONC 32.6 g/dL (31-35); MEAN CORPUSCULAR VOLUME 86.8 fL (81-99); MONOCYTES # (AUTO) 0.7 (0.2-0.8); MONOCYTES % 12.1 % (4.4-11.3); NEUTROPHILS # (AUTO) 4.2 (2.1-6.9); NEUTROPHILS % 70.5 % (38.7-80.0); PLATELET COUNT 138 x10e3/uL (140-360); RED BLOOD COUNT 4.03 x10e6/uL (4.3-5.7); RED CELL DISTRIBUTION WIDTH 11.9 % (11.7-14.4)
[2021-12-09 12:41] LABS: INR 1.01; PARTIAL THROMBOPLASTIN TIME 28.5 seconds (23.8-35.5); PROTHROMBIN TIME 14.2 seconds (11.9-14.5)
[2021-12-09 12:47] LABS: ALBUMIN 4.2 g/dL (3.5-5.0); ALBUMIN/GLOBULIN RATIO 1.4 (0.8-2.0); CREATININE, SERUM 2.1 mg/dL (0.72-1.25)
[2021-12-09 12:58] LABS: CALCIUM 6.5 mg/dL (8.4-10.2)
[~2021-12-11] MED LIST changes: +DIUREX MAX50 MG PO; +FENTANYL CITRATE/PF 100MCG/2 ML INJ ONE; +HUMALOG SQ; +HUMULIN SQ; +LIDOCAINE HCL 2% LOCAL INJ 5 ML SDV VIAL INJ ONE; +METOCLOPRAMIDE HCL 10 MG/2ML VIAL ONE; +MIDAZOLAM HCL 2 MG/2 ML VIAL ONE; +PROPOFOL IV EMULSION 10 MG/ML 20 ML VIAL ONE
[2021-12-11 07:49] LABS: ALBUMIN 4.2 g/dL (3.5-5.0); ALBUMIN/GLOBULIN RATIO 1.2 (0.8-2.0); CREATININE, SERUM 2.01 mg/dL (0.72-1.25)
[2021-12-11 07:52] LABS: CALCIUM 6.7 mg/dL (8.4-10.2)
[2021-12-11 08:30] VITALS: BP 131/94
== END | disposition home or self-care (01) ==
LOC: ENDO 07:23
PROVIDERS: ATTEND Internal Medicine Gastroenterology
DX: K22.2 Esophageal obstruction (principal); K29.70 Gastritis, unspecified, without bleeding; K20.90 Esophagitis, unspecified without bleeding; K31.89 Other diseases of stomach and duodenum; K21.9 Gastro-esophageal reflux disease without esophagitis; Z71.3 Dietary counseling and surveillance; G47.33 Obstructive sleep apnea (adult) (pediatric); E11.22 Type 2 diabetes mellitus with diabetic chronic kidney disease; I12.0 Hypertensive chronic kidney disease with stage 5 chronic kidney disease or end stage renal disease; N18.6 End stage renal disease; J45.909 Unspecified asthma, uncomplicated; I45.10 Unspecified right bundle-branch block; M54.50 Low back pain, unspecified; D86.9 Sarcoidosis, unspecified; Z88.8 Allergy status to other drugs, medicaments and biological substances; Z88.6 Allergy status to analgesic agent; Z91.041 Radiographic dye allergy status; Z01.810 Encounter for preprocedural cardiovascular examination; Z01.812 Encounter for preprocedural laboratory examination; Z79.4 Long term (current) use of insulin; Z79.899 Other long term (current) drug therapy; Z68.30 Body mass index [BMI] 30.0-30.9, adult; Z96.41 Presence of insulin pump (external) (internal); Z94.0 Kidney transplant status; Z85.528 Personal history of other malignant neoplasm of kidney
CPT/HCPCS: 36415 ×2; 43248; 80053 ×2; 82948; 85025; 85610; 85730; 93005; C9113; J2001; J2704; J2765; 43450; J2250; J3010

== ENCOUNTER → 2021-12-25 | Outpatient (CLI) | payer MEDICARE ==
[~2021-12-25] MED LIST changes: -FENTANYL CITRATE/PF 100MCG/2 ML INJ ONE; +GADOBENATE DIMEGLUMINE 1 ML IV ONE; -LIDOCAINE HCL 2% LOCAL INJ 5 ML SDV VIAL INJ ONE; -METOCLOPRAMIDE HCL 10 MG/2ML VIAL ONE; -PROPOFOL IV EMULSION 10 MG/ML 20 ML VIAL ONE
== END ==
LOC: MRI 09:08
PROVIDERS: ATTEND Specialist
DX: R10.9 Unspecified abdominal pain (principal)
CPT/HCPCS: 74183; A9577; J2250

== ENCOUNTER 2024-03-23 12:05 | Inpatient (IN) | payer MEDICARE ==
[~2024-03-23] VITALS: Ht 190.5 cm; Wt 118.8 kg
[~2024-03-23 12:05] MED LIST changes: +ACARBOSE50 MG PO; +ALPRAZOLAM0.25 MG PO; +ELIQUIS5 MG PO; -GADOBENATE DIMEGLUMINE 1 ML IV ONE; -MIDAZOLAM HCL 2 MG/2 ML VIAL ONE; +PANTOPRAZOLE SO40 MG PO; +SUCRALFATE1 GM PO
[2024-03-23 12:24] VITALS: TEMP 98.3
[2024-03-23 13:18] LABS: BASOPHILS % 0.2 % (0.0-1.0); EOSINOPHILS # (AUTO) 0.2 (0.0-0.4); EOSINOPHILS % 3.4 % (0.0-6.0); HEMATOCRIT 24.3 % (38.2-49.6); HEMOGLOBIN 7.4 g/dL (14.0-18.0); LYMPHOCYTES # (AUTO) 0.7 (1.0-3.2); LYMPHOCYTES % 11.8 % (18.0-39.1); MEAN CORPUSCULAR HEMOGLOBIN 28.4 pg (28-32); MEAN CORPUSCULAR HGB CONC 30.5 g/dL (31-35); MEAN CORPUSCULAR VOLUME 93.1 fL (81-99); MONOCYTES # (AUTO) 0.6 (0.2-0.8); MONOCYTES % 10.2 % (4.4-11.3); NEUTROPHILS % 72.4 % (38.7-80.0); PLATELET COUNT 158 x10e3/uL (140-360); RED BLOOD COUNT 2.61 x10e6/uL (4.3-5.7); RED CELL DISTRIBUTION WIDTH 11.4 % (11.7-14.4); WHITE BLOOD COUNT 5.51 x10e3/uL (4.8-10.8)
[2024-03-23] MEDS: HYDROCODONE/APAP 10MG-325MG TAB PO ONE (13:22)
[2024-03-23 13:43] LABS: ALBUMIN 3.8 g/dL (3.5-5.0); ALBUMIN/GLOBULIN RATIO 1.5 (0.8-2.0); ALKALINE PHOSPHATASE 54 IU/L (40-150); ANION GAP 17.2 mmol/L (8-16); BILIRUBIN,TOTAL 0.4 mg/dL (0.2-1.2); BLOOD UREA NITROGEN 38 mg/dL (7-26); BUN/CREATININE RATIO 12 (6-25); CARBON DIOXIDE 22 mmol/L (22-29); CHLORIDE 103 mmol/L (98-107); CREATININE, SERUM 3.17 mg/dL (0.72-1.25); EST GLOMERULAR FILTRATION RATE 23 ML/MIN (>=60); GLUCOSE 152 mg/dL (74-118); MAGNESIUM 1.3 MG/DL (1.3-2.1); POTASSIUM 4.2 mmol/L (3.5-5.1); SODIUM 138 mmol/L (136-145); TOTAL PROTEIN 6.3 g/dL (6.5-8.1)
[2024-03-23 13:49] LABS: ALANINE AMINOTRANSFERASE < 6 IU/L (0-55); CALCIUM 6.3 mg/dL (8.4-10.2)
[2024-03-23] MEDS: CALCIUM GLUC 1 G/50 ML NACL 50 ML IV SCH (14:06)
[2024-03-23 15:02] LABS: INR 1.02
[2024-03-23 15:03] LABS: PARTIAL THROMBOPLASTIN TIME 32.6 seconds (23.8-35.5)
[2024-03-23] MEDS ORDERED: CALCITRIOL 0.5 MCG CAP PO SCH (15:15)
[2024-03-23] MEDS: CALCITRIOL 0.25 MCG CAP PO SCH (15:16)
[2024-03-23] MEDS: MAGNESIUM SULFATE 2GM/50ML 50 ML IV ONE (15:37)
[2024-03-23] MEDS: SODIUM CHLORIDE 0.9% 250ML 250 ML IV ONE (15:37)
[2024-03-23 16:00] LABS: TROPONIN I 0.05 ng/mL (0-0.300)
[2024-03-23 16:19] VITALS: PULSE 68; RESP 18
[2024-03-23 16:50] VITALS: PULSE 69; RESP 18; O2SAT 99
[2024-03-23] MEDS ORDERED: ACETAMINOPHEN 325 MG TAB PO PRN (17:45)
[2024-03-23] MEDS ORDERED: ALPRAZOLAM 0.25 MG TAB PO SCH (17:45)
[2024-03-23] MEDS ORDERED: ALBUTEROL 90 MCG/ACT INHALER INH PRN (18:00)
[2024-03-23] MEDS: LINEZOLID 600 MG/D5W 300ML 300 ML IV SCH (18:28)
[2024-03-23 19:57] VITALS: BP 152/89; PULSE 89; RESP 21; TEMP 97.2; O2SAT 100
[2024-03-23 20:10] VITALS: PULSE 68; RESP 18; O2SAT 99
[2024-03-23] MEDS: CLONIDINE HCL 0.3 MG TAB PO SCH (22:36)
[2024-03-23] MEDS: OXYCODONE HCL 10 MG TAB CR PO SCH (22:36)
[2024-03-24] VITALS (15 sets, daily range): BP systolic 107–152; BP diastolic 71–113; PULSE 60–98; RESP 18–20; TEMP 96.3–98.6; O2SAT 95–100
[2024-03-24] MEDS: CALCIUM CARBONATE 500 MG CHEWABLE TABS PO SCH (01:02)
[2024-03-24] MEDS: ONDANSETRON HCL INJ 2MG/ML 2ML 2 MG/ML VIAL IV PRN (02:12)
[2024-03-24] MEDS: HYDROMORPHONE 1MG/1ML INJ IV PRN (02:12)
[2024-03-24] MEDS: FUROSEMIDE INJ 10 MG/ML 2 ML VIAL IV PRN (04:03)
[2024-03-24] MEDS: SODIUM CHLORIDE 0.9% 250ML 250 ML ONE ×3 (08:42→08:43)
[2024-03-24] MEDS ORDERED: PANTOPRAZOLE SOD 40 MG TABEC PO SCH (09:00)
[2024-03-24] MEDS: TACROLIMUS 1 MG CAP PO SCH (09:34)
[2024-03-24] MEDS: CARVEDILOL 12.5 MG TAB PO SCH (09:35)
[2024-03-24] MEDS: MYCOPHENOLATE MOFETIL 250 MG CAP PO SCH (09:36)
[2024-03-24 16:02] LABS: BASOPHILS % 0.4 % (0.0-1.0); EOSINOPHILS # (AUTO) 0.3 (0.0-0.4); EOSINOPHILS % 5.5 % (0.0-6.0); HEMATOCRIT 26.9 % (38.2-49.6); HEMOGLOBIN 8.4 g/dL (14.0-18.0); LYMPHOCYTES # (AUTO) 0.6 (1.0-3.2); MEAN CORPUSCULAR HEMOGLOBIN 28.6 pg (28-32); MEAN CORPUSCULAR HGB CONC 31.2 g/dL (31-35); MEAN CORPUSCULAR VOLUME 91.5 fL (81-99); MONOCYTES # (AUTO) 0.5 (0.2-0.8); MONOCYTES % 11.6 % (4.4-11.3); NEUTROPHILS # (AUTO) 3.1 (2.1-6.9); PLATELET COUNT 130 x10e3/uL (140-360); RED BLOOD COUNT 2.94 x10e6/uL (4.3-5.7); RED CELL DISTRIBUTION WIDTH 12.1 % (11.7-14.4); WHITE BLOOD COUNT 4.55 x10e3/uL (4.8-10.8)
[2024-03-24 16:33] LABS: ALBUMIN 3.5 g/dL (3.5-5.0); ALBUMIN/GLOBULIN RATIO 1.4 (0.8-2.0); ALKALINE PHOSPHATASE 50 IU/L (40-150); ANION GAP 19.4 mmol/L (8-16); BILIRUBIN,TOTAL 1.4 mg/dL (0.2-1.2); BLOOD UREA NITROGEN 40 mg/dL (7-26); BUN/CREATININE RATIO 11 (6-25); CALCIUM 7.1 mg/dL (8.4-10.2); CARBON DIOXIDE 23 mmol/L (22-29); CHLORIDE 100 mmol/L (98-107); CHOL/HDL RATIO 4.2 (3.9-4.7); CHOLESTEROL 165 MD/DL (0-199); CREATININE, SERUM 3.49 mg/dL (0.72-1.25); EST GLOMERULAR FILTRATION RATE 21 ML/MIN (>=60); GLUCOSE 144 mg/dL (74-118); HDL CHOLESTEROL 39 MG/DL (40-60); LDL CHOLESTEROL 108 MG/DL (60-130); MAGNESIUM 1.5 MG/DL (1.3-2.1); POTASSIUM 4.4 mmol/L (3.5-5.1); SODIUM 138 mmol/L (136-145); TRIGLYCERIDES 91 MG/DL (0-149)
[2024-03-24 16:45] LABS: ALANINE AMINOTRANSFERASE < 6 IU/L (0-55)
[2024-03-24 17:47] LABS: TROPONIN I 0.052 ng/mL (0-0.300)
[2024-03-24] MEDS ORDERED: DEXTROSE 50% SYRINGE 50 ML IV PRN (20:45)
[2024-03-24] MEDS: INSULIN LISPRO 100 UNIT/1 ML 3ML VIAL SQ SCH (21:00)
[2024-03-25] VITALS (9 sets, daily range): BP systolic 108–140; BP diastolic 56–109; PULSE 59–76; RESP 18–20; TEMP 97.5–98.7; O2SAT 95–100
[2024-03-25 05:53] LABS: BASOPHILS % 0.2 % (0.0-1.0); EOSINOPHILS # (AUTO) 0.3 (0.0-0.4); EOSINOPHILS % 6.6 % (0.0-6.0); HEMATOCRIT 26.1 % (38.2-49.6); HEMOGLOBIN 8.5 g/dL (14.0-18.0); LYMPHOCYTES # (AUTO) 0.6 (1.0-3.2); LYMPHOCYTES % 13.5 % (18.0-39.1); MEAN CORPUSCULAR HEMOGLOBIN 28.4 pg (28-32); MEAN CORPUSCULAR HGB CONC 32.6 g/dL (31-35); MEAN CORPUSCULAR VOLUME 87.3 fL (81-99); MONOCYTES # (AUTO) 0.6 (0.2-0.8); MONOCYTES % 13.5 % (4.4-11.3); NEUTROPHILS # (AUTO) 2.6 (2.1-6.9); NEUTROPHILS % 64.2 % (38.7-80.0); PLATELET COUNT 131 x10e3/uL (140-360); RED BLOOD COUNT 2.99 x10e6/uL (4.3-5.7); RED CELL DISTRIBUTION WIDTH 12.6 % (11.7-14.4); WHITE BLOOD COUNT 4.08 x10e3/uL (4.8-10.8)
[2024-03-25 06:23] LABS: ANION GAP 19.3 mmol/L (8-16); CREATININE, SERUM 3.85 mg/dL (0.72-1.25); POTASSIUM 4.3 mmol/L (3.5-5.1)
[2024-03-25 06:29] LABS: CALCIUM 6.6 mg/dL (8.4-10.2)
[2024-03-25 06:43] LABS: TROPONIN I 0.052 ng/mL (0-0.300)
[2024-03-25] MEDS: CALCIUM GLUC 1 G/50 ML NACL 50 ML IV ONE (12:30)
[2024-03-25] MEDS: SODIUM CHLORIDE 0.9% 1000ML 1,000 ML IV ONE (15:49)
[2024-03-26] VITALS (9 sets, daily range): BP systolic 117–146; BP diastolic 80–101; PULSE 68–78; RESP 16–20; TEMP 97.3–99; O2SAT 95–100
[2024-03-26 05:12] LABS: EOSINOPHILS % 5.9 % (0.0-6.0); HEMATOCRIT 26.8 % (38.2-49.6); HEMOGLOBIN 8.8 g/dL (14.0-18.0); LYMPHOCYTES % 11.9 % (18.0-39.1); MEAN CORPUSCULAR HEMOGLOBIN 28.7 pg (28-32); MEAN CORPUSCULAR HGB CONC 32.8 g/dL (31-35); MEAN CORPUSCULAR VOLUME 87.3 fL (81-99); MONOCYTES % 9.8 % (4.4-11.3); NEUTROPHILS % 70.4 % (38.7-80.0); PLATELET COUNT 143 x10e3/uL (140-360); RED BLOOD COUNT 3.07 x10e6/uL (4.3-5.7); RED CELL DISTRIBUTION WIDTH 12.4 % (11.7-14.4); WHITE BLOOD COUNT 5.81 x10e3/uL (4.8-10.8)
[2024-03-26 05:13] LABS: BASOPHILS % 0.3 % (0.0-1.0); EOSINOPHILS # (AUTO) 0.3 (0.0-0.4); LYMPHOCYTES # (AUTO) 0.7 (1.0-3.2); MONOCYTES # (AUTO) 0.6 (0.2-0.8); NEUTROPHILS # (AUTO) 4.1 (2.1-6.9)
[2024-03-26 06:01] LABS: ALBUMIN 3.4 g/dL (3.5-5.0); ALBUMIN/GLOBULIN RATIO 1.3 (0.8-2.0); BILIRUBIN,TOTAL 0.6 mg/dL (0.2-1.2); CREATININE, SERUM 3.67 mg/dL (0.72-1.25); TOTAL PROTEIN 6.1 g/dL (6.5-8.1)
[2024-03-26 06:24] LABS: CALCIUM 6.9 mg/dL (8.4-10.2)
[2024-03-26 06:38] LABS: ABG HCO3 26 mmol/L (22-26); ABG PCO2 47 mmHg (35-45); ABG PH 7.34 (7.35-7.45); ABG PO2 44 mmHg (80-105); ABG TCO2 27
[2024-03-26] MEDS: CALCIUM GLUC 1 G/50 ML NACL 50 ML IV ONE (08:20)
[2024-03-27] VITALS (10 sets, daily range): BP systolic 109–143; BP diastolic 63–95; PULSE 57–74; RESP 16–20; TEMP 97.9–99; O2SAT 95–100
[2024-03-27 05:40] LABS: BASOPHILS % 0.4 % (0.0-1.0); EOSINOPHILS # (AUTO) 0.3 (0.0-0.4); EOSINOPHILS % 5.6 % (0.0-6.0); HEMATOCRIT 26.8 % (38.2-49.6); HEMOGLOBIN 8.8 g/dL (14.0-18.0); LYMPHOCYTES # (AUTO) 0.8 (1.0-3.2); LYMPHOCYTES % 13.1 % (18.0-39.1); MEAN CORPUSCULAR HEMOGLOBIN 28.7 pg (28-32); MEAN CORPUSCULAR HGB CONC 32.8 g/dL (31-35); MEAN CORPUSCULAR VOLUME 87.3 fL (81-99); MONOCYTES # (AUTO) 0.7 (0.2-0.8); MONOCYTES % 12.1 % (4.4-11.3); NEUTROPHILS # (AUTO) 3.8 (2.1-6.9); NEUTROPHILS % 67.2 % (38.7-80.0); PLATELET COUNT 145 x10e3/uL (140-360); RED BLOOD COUNT 3.07 x10e6/uL (4.3-5.7); RED CELL DISTRIBUTION WIDTH 12.4 % (11.7-14.4); WHITE BLOOD COUNT 5.71 x10e3/uL (4.8-10.8)
[2024-03-27 06:15] LABS: ALBUMIN 3.3 g/dL (3.5-5.0); ALBUMIN/GLOBULIN RATIO 1.2 (0.8-2.0); ANION GAP 19.1 mmol/L (8-16); BILIRUBIN,TOTAL 0.9 mg/dL (0.2-1.2); CREATININE, SERUM 3.6 mg/dL (0.72-1.25); POTASSIUM 4.1 mmol/L (3.5-5.1); TOTAL PROTEIN 6.1 g/dL (6.5-8.1)
[2024-03-28] VITALS (10 sets, daily range): BP systolic 113–176; BP diastolic 81–102; PULSE 58–72; RESP 16–20; TEMP 97.2–99; O2SAT 99–100
[2024-03-28] MEDS: SODIUM CHLORIDE 0.9% 250ML 250 ML ONE (03:24)
[2024-03-28 06:37] LABS: ANION GAP 19.9 mmol/L (8-16); CALCIUM 7.5 mg/dL (8.4-10.2); CREATININE, SERUM 3.64 mg/dL (0.72-1.25); POTASSIUM 3.9 mmol/L (3.5-5.1)
[2024-03-28] MEDS: SODIUM CHLORIDE 0.45% 1,000 ML IV SCH (17:20)
[2024-03-28] MEDS: PEG (High)/E-LYTE SOLN 4,000 ML BTL PO ONE (17:20)
[2024-03-29] VITALS (9 sets, daily range): BP systolic 95–166; BP diastolic 77–99; PULSE 65–77; RESP 18–21; TEMP 97.9–98.1; O2SAT 96–100
[2024-03-29] MEDS ORDERED: PROPOFOL IV EMULSION 10 MG/ML 20 ML VIAL ONE (06:45)
[2024-03-29] MEDS ORDERED: FENTANYL CITRATE/PF 100MCG/2 ML INJ ONE (06:45)
[2024-03-29] MEDS ORDERED: MIDAZOLAM HCL 2 MG/2 ML VIAL ONE (06:45)
[2024-03-29] MEDS ORDERED: LIDOCAINE HCL 2% LOCAL INJ 5 ML SDV VIAL INJ ONE (06:46)
[2024-03-29] MEDS ORDERED: PHENYLEPHRINE HCL 1% 10 MG/ML VIAL ONE (06:48)
[2024-03-29] MEDS ORDERED: PROPOFOL IV EMULSION 50 ML IV ONE (07:35)
[2024-03-29] MEDS: PANTOPRAZOLE SOD 40 MG TABEC PO SCH (09:00)
[2024-03-29 10:44] LABS: BASOPHILS % 0.4 % (0.0-1.0); EOSINOPHILS # (AUTO) 0.3 (0.0-0.4); EOSINOPHILS % 6.3 % (0.0-6.0); HEMATOCRIT 28.1 % (38.2-49.6); HEMOGLOBIN 8.8 g/dL (14.0-18.0); LYMPHOCYTES # (AUTO) 0.8 (1.0-3.2); LYMPHOCYTES % 14.6 % (18.0-39.1); MEAN CORPUSCULAR HEMOGLOBIN 28.6 pg (28-32); MEAN CORPUSCULAR HGB CONC 31.3 g/dL (31-35); MEAN CORPUSCULAR VOLUME 91.2 fL (81-99); MONOCYTES # (AUTO) 0.6 (0.2-0.8); MONOCYTES % 10.2 % (4.4-11.3); NEUTROPHILS # (AUTO) 3.7 (2.1-6.9); NEUTROPHILS % 67.4 % (38.7-80.0); PLATELET COUNT 134 x10e3/uL (140-360); RED BLOOD COUNT 3.08 x10e6/uL (4.3-5.7); RED CELL DISTRIBUTION WIDTH 11.4 % (11.7-14.4); WHITE BLOOD COUNT 5.41 x10e3/uL (4.8-10.8)
[2024-03-29 11:09] LABS: ALBUMIN 3.4 g/dL (3.5-5.0); ALBUMIN/GLOBULIN RATIO 1.1 (0.8-2.0); ALKALINE PHOSPHATASE 47 IU/L (40-150); ANION GAP 17.1 mmol/L (8-16); BILIRUBIN,TOTAL 0.6 mg/dL (0.2-1.2); BLOOD UREA NITROGEN 29 mg/dL (7-26); BUN/CREATININE RATIO 8 (6-25); CALCIUM 7.9 mg/dL (8.4-10.2); CARBON DIOXIDE 23 mmol/L (22-29); CHLORIDE 104 mmol/L (98-107); CREATININE, SERUM 3.47 mg/dL (0.72-1.25); EST GLOMERULAR FILTRATION RATE 21 ML/MIN (>=60); GLUCOSE 124 mg/dL (74-118); POTASSIUM 4.1 mmol/L (3.5-5.1); SODIUM 140 mmol/L (136-145); TOTAL PROTEIN 6.4 g/dL (6.5-8.1)
[2024-03-29 11:14] LABS: ALANINE AMINOTRANSFERASE < 6 IU/L (0-55)
[2024-03-29] MEDS: ACETAMINOPHEN/CODEINE 300MG - 30MG TAB PO PRN (18:29)
[2024-03-30] VITALS (10 sets, daily range): BP systolic 121–139; BP diastolic 77–97; PULSE 57–76; RESP 18–19; TEMP 97.6–98.2; O2SAT 96–100
[2024-03-30 06:21] LABS: ALBUMIN 3.3 g/dL (3.5-5.0); ALBUMIN/GLOBULIN RATIO 1.2 (0.8-2.0); ALKALINE PHOSPHATASE 44 IU/L (40-150); ANION GAP 16.3 mmol/L (8-16); BILIRUBIN,TOTAL 0.6 mg/dL (0.2-1.2); BLOOD UREA NITROGEN 28 mg/dL (7-26); BUN/CREATININE RATIO 8 (6-25); CALCIUM 7.9 mg/dL (8.4-10.2); CARBON DIOXIDE 23 mmol/L (22-29); CHLORIDE 103 mmol/L (98-107); CREATININE, SERUM 3.38 mg/dL (0.72-1.25); EST GLOMERULAR FILTRATION RATE 22 ML/MIN (>=60); GLUCOSE 169 mg/dL (74-118); POTASSIUM 4.3 mmol/L (3.5-5.1); SODIUM 138 mmol/L (136-145)
[2024-03-30 06:22] LABS: ALANINE AMINOTRANSFERASE < 6 IU/L (0-55)
[2024-03-30] MEDS ORDERED: DIATRIZOATE MEGL/DIATRIZOA SOD 30 ML BTL PO ONE (11:08)
[2024-03-30] MEDS: NIFEDIPINE CR 30 MG TAB PO SCH (14:31)
[2024-03-30] MEDS: PANTOPRAZOLE SOD 40 MG TABEC PO SCH (18:24)
[2024-03-30] MEDS: HYDROMORPHONE 1MG/1ML INJ IV PRN (18:25)
[2024-03-31] VITALS (9 sets, daily range): BP systolic 112–143; BP diastolic 89–98; PULSE 62–76; RESP 18–20; TEMP 97.4–97.9; O2SAT 95–100
[2024-03-31 09:12] LABS: ANION GAP 18.2 mmol/L (8-16); CALCIUM 8.3 mg/dL (8.4-10.2); CREATININE, SERUM 3.5 mg/dL (0.72-1.25); POTASSIUM 4.2 mmol/L (3.5-5.1)
[2024-03-31 09:37] LABS: BASOPHILS % 0.4 % (0.0-1.0); EOSINOPHILS # (AUTO) 0.3 (0.0-0.4); HEMATOCRIT 28.6 % (38.2-49.6); HEMOGLOBIN 8.8 g/dL (14.0-18.0); LYMPHOCYTES # (AUTO) 0.9 (1.0-3.2); LYMPHOCYTES % 17.7 % (18.0-39.1); MEAN CORPUSCULAR HEMOGLOBIN 28.1 pg (28-32); MEAN CORPUSCULAR HGB CONC 30.8 g/dL (31-35); MEAN CORPUSCULAR VOLUME 91.4 fL (81-99); MONOCYTES # (AUTO) 0.5 (0.2-0.8); MONOCYTES % 9.7 % (4.4-11.3); NEUTROPHILS # (AUTO) 3.3 (2.1-6.9); PLATELET COUNT 131 x10e3/uL (140-360); RED BLOOD COUNT 3.13 x10e6/uL (4.3-5.7); RED CELL DISTRIBUTION WIDTH 11.5 % (11.7-14.4); WHITE BLOOD COUNT 5.13 x10e3/uL (4.8-10.8)
[2024-04-01] VITALS (10 sets, daily range): BP systolic 125–145; BP diastolic 76–114; PULSE 68–78; RESP 16–20; TEMP 97–98.3; O2SAT 95–100
[2024-04-01 07:01] LABS: BASOPHILS % 0.4 % (0.0-1.0); EOSINOPHILS # (AUTO) 0.3 (0.0-0.4); EOSINOPHILS % 5.6 % (0.0-6.0); HEMATOCRIT 28.3 % (38.2-49.6); HEMOGLOBIN 8.9 g/dL (14.0-18.0); LYMPHOCYTES # (AUTO) 0.8 (1.0-3.2); LYMPHOCYTES % 15.8 % (18.0-39.1); MEAN CORPUSCULAR HEMOGLOBIN 28.4 pg (28-32); MEAN CORPUSCULAR HGB CONC 31.4 g/dL (31-35); MEAN CORPUSCULAR VOLUME 90.4 fL (81-99); MONOCYTES # (AUTO) 0.5 (0.2-0.8); MONOCYTES % 9.4 % (4.4-11.3); NEUTROPHILS # (AUTO) 3.6 (2.1-6.9); NEUTROPHILS % 68.2 % (38.7-80.0); PLATELET COUNT 112 x10e3/uL (140-360); RED BLOOD COUNT 3.13 x10e6/uL (4.3-5.7); RED CELL DISTRIBUTION WIDTH 11.2 % (11.7-14.4); WHITE BLOOD COUNT 5.31 x10e3/uL (4.8-10.8)
[2024-04-01 07:24] LABS: ANION GAP 17.1 mmol/L (8-16); CALCIUM 8.2 mg/dL (8.4-10.2); CREATININE, SERUM 3.33 mg/dL (0.72-1.25); POTASSIUM 4.1 mmol/L (3.5-5.1)
[2024-04-01] MEDS: ONDANSETRON HCL INJ 2MG/ML 2ML 2 MG/ML VIAL IV PRN (14:05)
[2024-04-01] MEDS: SUCRALFATE 1 GM TAB PO SCH (21:27)
[2024-04-02] VITALS (8 sets, daily range): BP systolic 114–145; BP diastolic 53–114; PULSE 70–89; RESP 18–22; TEMP 97.9–98.5; O2SAT 94–100
[2024-04-02 10:51] LABS: ALBUMIN 3.3 g/dL (3.5-5.0); ALBUMIN/GLOBULIN RATIO 1.1 (0.8-2.0); ANION GAP 17.1 mmol/L (8-16); BILIRUBIN,TOTAL 0.8 mg/dL (0.2-1.2); CALCIUM 8.1 mg/dL (8.4-10.2); CREATININE, SERUM 3.64 mg/dL (0.72-1.25); POTASSIUM 4.1 mmol/L (3.5-5.1); TOTAL PROTEIN 6.2 g/dL (6.5-8.1)
[2024-04-02] MEDS ORDERED: CARAFATE1 GM PO (20:15)
[2024-04-05] MEDS ORDERED: DOXYCYCLINE HY100 MG PO (13:03)
[2024-04-05] MEDS ORDERED: CEFUROXIME250 MG PO (13:05)
== END 2024-04-02 18:20 | disposition home or self-care (01) | DRG 617 ==
LOC: ER 13:04 → ERHOLD 15:29 → MED/SURG2 20:11
PROVIDERS: ADMIT Internal Medicine; ATTEND Internal Medicine
PROC: 4A133R1 Monitoring of Arterial Saturation, Peripheral, Percutaneous Approach (ICD-10-PCS; 2024-03-23)
PROC: 30233N1 Transfusion of Nonautologous Red Blood Cells into Peripheral Vein, Percutaneous Approach (ICD-10-PCS; 2024-03-24)
PROC: 0Y6T0Z1 Detachment at Right 3rd Toe, High, Open Approach (ICD-10-PCS; 2024-03-29)
PROC: 0DJD8ZZ Inspection of Lower Intestinal Tract, Via Natural or Artificial Opening Endoscopic (ICD-10-PCS; principal; 2024-03-29 07:30)
PROC: 0D738ZZ Dilation of Lower Esophagus, Via Natural or Artificial Opening Endoscopic (ICD-10-PCS; 2024-03-29 07:30)
PROC: 0DB38ZX Excision of Lower Esophagus, Via Natural or Artificial Opening Endoscopic, Diagnostic (ICD-10-PCS; 2024-03-29 07:30)
DX: E11.69 Type 2 diabetes mellitus with other specified complication (principal); I13.0 Hypertensive heart and chronic kidney disease with heart failure and stage 1 through stage 4 chronic kidney disease, or unspecified chronic kidney disease; M86.171 Other acute osteomyelitis, right ankle and foot; I50.22 Chronic systolic (congestive) heart failure; I42.9 Cardiomyopathy, unspecified; T86.11 Kidney transplant rejection; K22.2 Esophageal obstruction; N17.9 Acute kidney failure, unspecified; N18.4 Chronic kidney disease, stage 4 (severe); L97.519 Non-pressure chronic ulcer of other part of right foot with unspecified severity; E11.22 Type 2 diabetes mellitus with diabetic chronic kidney disease; E11.51 Type 2 diabetes mellitus with diabetic peripheral angiopathy without gangrene; E11.42 Type 2 diabetes mellitus with diabetic polyneuropathy; Z79.4 Long term (current) use of insulin; Z12.11 Encounter for screening for malignant neoplasm of colon; K21.9 Gastro-esophageal reflux disease without esophagitis; D86.9 Sarcoidosis, unspecified; E83.51 Hypocalcemia; E78.5 Hyperlipidemia, unspecified; E89.2 Postprocedural hypoparathyroidism; I48.0 Paroxysmal atrial fibrillation; D63.8 Anemia in other chronic diseases classified elsewhere; G89.29 Other chronic pain; G47.30 Sleep apnea, unspecified; Z71.3 Dietary counseling and surveillance; Z68.32 Body mass index [BMI] 32.0-32.9, adult; Z89.421 Acquired absence of other right toe(s); Z79.899 Other long term (current) drug therapy
CPT/HCPCS: 36415; 43239; 45330; 71045; 74220; 74230; 80048; 80053; 80061; 82550; 82805; 82948; 83735; 83880; 84484; 85025; 85610; 85730; 86850; 86900; 86920; 87040; 88304; 88305; 88311; 93005; 94799; 96372; 99252; 99284; J1171; J1940; J2003; J2020; J2250; J2371; J2405; J2470; J2543; J3475; J7030; J7050; J7507; P9016; Q9963

== ENCOUNTER → 2024-04-10 | Day surgery (SDC) | payer MEDICARE ==
[~2024-04-10] MED LIST changes: +CARAFATE1 GM PO; +CEFUROXIME250 MG PO; +DOXYCYCLINE HY100 MG PO; +FENTANYL CITRATE/PF 100MCG/2 ML INJ ONE; +LACTATED RINGER'S 1,000 ML ONE; +LIDOCAINE HCL 2% LOCAL INJ 5 ML SDV VIAL INJ ONE; +MIDAZOLAM HCL 2 MG/2 ML VIAL ONE; +PROPOFOL IV EMULSION 10 MG/ML 20 ML VIAL ONE
[2024-04-10 10:01] VITALS: TEMP 98.1
[2024-04-10 10:30] VITALS: BP 155/95; PULSE 76; RESP 15; O2SAT 95
== END | disposition home or self-care (01) ==
LOC: ENDO 06:20
PROVIDERS: ATTEND Internal Medicine Gastroenterology
DX: K22.2 Esophageal obstruction (principal); K21.9 Gastro-esophageal reflux disease without esophagitis; R14.0 Abdominal distension (gaseous); R63.4 Abnormal weight loss; G47.33 Obstructive sleep apnea (adult) (pediatric); D64.9 Anemia, unspecified; E10.22 Type 1 diabetes mellitus with diabetic chronic kidney disease; N18.4 Chronic kidney disease, stage 4 (severe); I42.0 Dilated cardiomyopathy; I49.9 Cardiac arrhythmia, unspecified; E78.5 Hyperlipidemia, unspecified; R03.0 Elevated blood-pressure reading, without diagnosis of hypertension; I50.22 Chronic systolic (congestive) heart failure; G62.9 Polyneuropathy, unspecified; Z88.8 Allergy status to other drugs, medicaments and biological substances; Z88.6 Allergy status to analgesic agent; Z91.041 Radiographic dye allergy status; Z79.4 Long term (current) use of insulin; Z79.899 Other long term (current) drug therapy; Z94.9 Transplanted organ and tissue status, unspecified
CPT/HCPCS: 43249; J2003; J2250; J2704; J3010; J7121; 43450

== ENCOUNTER 2024-05-23 05:55 | Day surgery (SDC) | payer MEDICARE ==
[2024-05-23] VITALS (10 sets, daily range): BP systolic 126–152; BP diastolic 80–109; PULSE 74–83; RESP 13–17; TEMP 96.9–97.3; O2SAT 96–100
[~2024-05-23] VITALS: Ht 190.5 cm; Wt 93.0 kg
[~2024-05-23 05:55] MED LIST changes: -FENTANYL CITRATE/PF 100MCG/2 ML INJ ONE; -LACTATED RINGER'S 1,000 ML ONE; -LIDOCAINE HCL 2% LOCAL INJ 5 ML SDV VIAL INJ ONE; +METOPROLOL TART50 MG PO; -MIDAZOLAM HCL 2 MG/2 ML VIAL ONE; +NORVASC2.5 MG PO; -PROPOFOL IV EMULSION 10 MG/ML 20 ML VIAL ONE
[2024-05-23] MEDS ORDERED: HEPARIN SOD (PORCINE) 1000 UNIT/ML 30ML ONE (07:01)
[2024-05-23] MEDS ORDERED: IOPAMIDOL 370 MG/ML 100 ML INFUS..BTL INJ ONE (07:02)
[2024-05-23] MEDS ORDERED: SODIUM CHLORIDE 0.9% 1000ML 1,000 ML ONE (07:02)
[2024-05-23] MEDS ORDERED: HEPARIN SOD/SOD CHLORIDE 2,000 ML ONE (07:02)
[2024-05-23] MEDS ORDERED: LIDOCAINE HCL 2% LOCAL 20 ML VIAL ONE (07:02)
[2024-05-23] MEDS ORDERED: VERAPAMIL HCL 2.5 MG/ML 2 ML VIAL ONE (07:02)
[2024-05-23] MEDS ORDERED: NITROGLYCERIN/D5W 200 MCG/ML 250 ML ONE (07:03)
[2024-05-23 07:13] LABS: BASOPHILS % 0.2 % (0.0-1.0); EOSINOPHILS # (AUTO) 0.2 (0.0-0.4); EOSINOPHILS % 3.5 % (0.0-6.0); HEMATOCRIT 22.9 % (38.2-49.6); HEMOGLOBIN 7.5 g/dL (14.0-18.0); LYMPHOCYTES # (AUTO) 0.9 (1.0-3.2); LYMPHOCYTES % 19.5 % (18.0-39.1); MEAN CORPUSCULAR HEMOGLOBIN 28.5 pg (28-32); MEAN CORPUSCULAR HGB CONC 32.8 g/dL (31-35); MEAN CORPUSCULAR VOLUME 87.1 fL (81-99); MONOCYTES # (AUTO) 0.6 (0.2-0.8); NEUTROPHILS # (AUTO) 2.9 (2.1-6.9); NEUTROPHILS % 63.6 % (38.7-80.0); PLATELET COUNT 143 x10e3/uL (140-360); RED BLOOD COUNT 2.63 x10e6/uL (4.3-5.7); RED CELL DISTRIBUTION WIDTH 13.2 % (11.7-14.4); WHITE BLOOD COUNT 4.61 x10e3/uL (4.8-10.8)
[2024-05-23 07:34] LABS: ALBUMIN 3.7 g/dL (3.5-5.0); ALBUMIN/GLOBULIN RATIO 1.3 (0.8-2.0); ANION GAP 17.3 mmol/L (8-16); BILIRUBIN,TOTAL 0.5 mg/dL (0.2-1.2); CALCIUM 7.5 mg/dL (8.4-10.2); CREATININE, SERUM 3.42 mg/dL (0.72-1.25); POTASSIUM 4.3 mmol/L (3.5-5.1); TOTAL PROTEIN 6.6 g/dL (6.5-8.1)
[2024-05-23] MEDS: DIPHENHYDRAMINE HCL 25 MG CAP ONE (07:48)
[2024-05-23] MEDS: METHYLPREDNISOLONE SOD SUCC 125 MG/2ML VIAL ONE (07:48)
[2024-05-23] MEDS: FAMOTIDINE 20 MG/2 ML VIAL IV ONE (07:49)
[2024-05-23] MEDS ORDERED: FENTANYL CITRATE/PF 100MCG/2 ML INJ ONE (08:02)
[2024-05-23] MEDS ORDERED: MIDAZOLAM HCL 2 MG/2 ML VIAL ONE ×2 (08:02→08:27)
== END 2024-05-23 11:20 | disposition home or self-care (01) ==
LOC: CATH LAB 05:55
PROVIDERS: ATTEND Internal Medicine Cardiovascular Disease
DX: I25.119 Atherosclerotic heart disease of native coronary artery with unspecified angina pectoris (principal); I11.0 Hypertensive heart disease with heart failure; I50.20 Unspecified systolic (congestive) heart failure; E78.2 Mixed hyperlipidemia; E11.9 Type 2 diabetes mellitus without complications; J45.909 Unspecified asthma, uncomplicated; Z88.6 Allergy status to analgesic agent; Z91.041 Radiographic dye allergy status; Z79.4 Long term (current) use of insulin; Z79.899 Other long term (current) drug therapy; Z94.0 Kidney transplant status
CPT/HCPCS: 36415; 76937; 80053; 85025; 93458; C1760 ×2; C1769 ×2; C1887; J1644; J2003; J2250; J2919; J3010; J7030; Q9967; 99152; 99153

== ENCOUNTER → 2024-06-26 | Day surgery (SDC) | payer MEDICARE ==
[2024-06-26] VITALS (8 sets, daily range): BP systolic 135–164; BP diastolic 89–106; PULSE 58–68; RESP 16–18; TEMP 97.4–98.5; O2SAT 97–100
[~2024-06-26] MED LIST changes: +CALCITRIOL0.25 MCG PO; +CALCIUM CHLORIDE 10% SYRINGE 10 ML IV ONE; +CALCIUM500 MG; +FENTANYL CITRATE/PF 100MCG/2 ML INJ ONE; +GLYCOPYRROLATE INJ 0.2 MG/ML VIAL ONE; +LIDOCAINE HCL 2% LOCAL INJ 5 ML SDV VIAL INJ ONE; +MIDAZOLAM HCL 2 MG/2 ML VIAL ONE; +PROPOFOL IV EMULSION 10 MG/ML 20 ML VIAL ONE; +SODIUM CHLORIDE 0.9% 250ML 250 ML ONE
[2024-06-26 07:44] LABS: BASOPHILS % 0.2 % (0.0-1.0); EOSINOPHILS # (AUTO) 0.1 (0.0-0.4); EOSINOPHILS % 2.3 % (0.0-6.0); LYMPHOCYTES # (AUTO) 1.2 (1.0-3.2); LYMPHOCYTES % 27.1 % (18.0-39.1); MEAN CORPUSCULAR HEMOGLOBIN 26.5 pg (28-32); MEAN CORPUSCULAR HGB CONC 30.5 g/dL (31-35); MONOCYTES # (AUTO) 0.5 (0.2-0.8); NEUTROPHILS # (AUTO) 2.6 (2.1-6.9); NEUTROPHILS % 58.9 % (38.7-80.0); PLATELET COUNT 190 x10e3/uL (140-360); RED BLOOD COUNT 2.53 x10e6/uL (4.3-5.7); RED CELL DISTRIBUTION WIDTH 12.7 % (11.7-14.4); WHITE BLOOD COUNT 4.35 x10e3/uL (4.8-10.8)
[2024-06-26 07:48] LABS: HEMOGLOBIN 6.7 g/dL (14.0-18.0)
[2024-06-26 07:58] LABS: INR 1.07; PROTHROMBIN TIME 14.6 seconds (11.9-14.5)
[2024-06-26 07:59] LABS: PARTIAL THROMBOPLASTIN TIME 34.9 seconds (23.8-35.5)
[2024-06-26 08:05] LABS: ANION GAP 17.2 mmol/L (8-16); CREATININE, SERUM 3.78 mg/dL (0.72-1.25); POTASSIUM 4.2 mmol/L (3.5-5.1)
[2024-06-26 08:09] LABS: CALCIUM 6.9 mg/dL (8.4-10.2)
[2024-06-26 08:31] LABS: HEMATOCRIT 18.6 % (38.2-49.6); HEMOGLOBIN 5.9 g/dL (14.0-18.0)
[2024-06-26 13:08] LABS: ALBUMIN 3.3 g/dL (3.5-5.0); BILIRUBIN,DIRECT 0.3 mg/dL (0.0-0.5); BILIRUBIN,TOTAL 0.6 mg/dL (0.2-1.2); TOTAL PROTEIN 6.7 g/dL (6.5-8.1)
[2024-06-26 13:27] LABS: FERRITIN 839.39 ng/mL (21.81-274.66)
[2024-06-26 16:17] LABS: BASOPHILS % 0.4 % (0.0-1.0); EOSINOPHILS # (AUTO) 0.2 (0.0-0.4); EOSINOPHILS % 3.1 % (0.0-6.0); HEMATOCRIT 25.2 % (38.2-49.6); HEMOGLOBIN 8.2 g/dL (14.0-18.0); LYMPHOCYTES # (AUTO) 1.1 (1.0-3.2); LYMPHOCYTES % 21.4 % (18.0-39.1); MEAN CORPUSCULAR HEMOGLOBIN 27.6 pg (28-32); MEAN CORPUSCULAR HGB CONC 32.5 g/dL (31-35); MEAN CORPUSCULAR VOLUME 84.8 fL (81-99); MONOCYTES # (AUTO) 0.8 (0.2-0.8); MONOCYTES % 15.8 % (4.4-11.3); NEUTROPHILS % 57.8 % (38.7-80.0); PLATELET COUNT 169 x10e3/uL (140-360); RED BLOOD COUNT 2.97 x10e6/uL (4.3-5.7); RED CELL DISTRIBUTION WIDTH 13.3 % (11.7-14.4); WHITE BLOOD COUNT 5.18 x10e3/uL (4.8-10.8)
[2024-06-26 16:33] LABS: INR 1.09; PROTHROMBIN TIME 14.8 seconds (11.9-14.5)
[2024-06-26 16:34] LABS: PARTIAL THROMBOPLASTIN TIME 37.5 seconds (23.8-35.5)
[2024-06-26 16:40] LABS: ALBUMIN 3.2 g/dL (3.5-5.0); BILIRUBIN,DIRECT 0.7 mg/dL (0.0-0.5); BILIRUBIN,TOTAL 1.9 mg/dL (0.2-1.2); TOTAL PROTEIN 6.6 g/dL (6.5-8.1)
== END | disposition home or self-care (01) ==
LOC: ENDO 06:42
PROVIDERS: ATTEND Internal Medicine Gastroenterology
DX: K22.2 Esophageal obstruction (principal); K29.50 Unspecified chronic gastritis without bleeding; K27.9 Peptic ulcer, site unspecified, unspecified as acute or chronic, without hemorrhage or perforation; K21.9 Gastro-esophageal reflux disease without esophagitis; K44.9 Diaphragmatic hernia without obstruction or gangrene; G47.33 Obstructive sleep apnea (adult) (pediatric); I48.91 Unspecified atrial fibrillation; I10 Essential (primary) hypertension; I25.10 Atherosclerotic heart disease of native coronary artery without angina pectoris; J45.909 Unspecified asthma, uncomplicated; E11.9 Type 2 diabetes mellitus without complications; D86.9 Sarcoidosis, unspecified; M54.9 Dorsalgia, unspecified; Z88.8 Allergy status to other drugs, medicaments and biological substances; Z88.6 Allergy status to analgesic agent; Z91.041 Radiographic dye allergy status; Z79.899 Other long term (current) drug therapy; Z94.0 Kidney transplant status; Z98.61 Coronary angioplasty status
CPT/HCPCS: 36415; 43233; 43239; 80048; 80076; 82607; 82728; 82746; 82948; 83540; 84466; 85014; 85018; 85025; 85045; 85610; 85730; 86850; 86900; 86920; 88112; 88305; 88312; 88342; 93005; J2003; J2250; J2704; J3010; J7050; P9016; 43450

== ENCOUNTER → 2024-09-04 | Day surgery (SDC) | payer MEDICARE ==
[~2024-09-04] MED LIST changes: -CALCIUM CHLORIDE 10% SYRINGE 10 ML IV ONE; -FENTANYL CITRATE/PF 100MCG/2 ML INJ ONE; -GLYCOPYRROLATE INJ 0.2 MG/ML VIAL ONE; +HUMALOG MI100 UNIT/2 SQ; -SODIUM CHLORIDE 0.9% 250ML 250 ML ONE; +SODIUM CHLORIDE 0.9% 500ML 500 ML ONE
[2024-09-04 11:10] LABS: BASOPHILS % 0.3 % (0.0-1.0); EOSINOPHILS # (AUTO) 0.6 (0.0-0.4); HEMATOCRIT 26.9 % (38.2-49.6); HEMOGLOBIN 8.7 g/dL (14.0-18.0); LYMPHOCYTES # (AUTO) 1.6 (1.0-3.2); LYMPHOCYTES % 22.7 % (18.0-39.1); MEAN CORPUSCULAR HEMOGLOBIN 27.3 pg (28-32); MEAN CORPUSCULAR HGB CONC 32.3 g/dL (31-35); MEAN CORPUSCULAR VOLUME 84.3 fL (81-99); MONOCYTES # (AUTO) 0.9 (0.2-0.8); MONOCYTES % 12.8 % (4.4-11.3); NEUTROPHILS # (AUTO) 3.9 (2.1-6.9); NEUTROPHILS % 55.8 % (38.7-80.0); PLATELET COUNT 242 x10e3/uL (140-360); RED BLOOD COUNT 3.19 x10e6/uL (4.3-5.7); RED CELL DISTRIBUTION WIDTH 14.6 % (11.7-14.4); WHITE BLOOD COUNT 6.97 x10e3/uL (4.8-10.8)
[2024-09-04 11:33] LABS: INR 1.08
[2024-09-04 11:40] LABS: PARTIAL THROMBOPLASTIN TIME 45.6 seconds (23.8-35.5)
[2024-09-04 11:45] LABS: ANION GAP 17.8 mmol/L (8-16); CREATININE, SERUM 4.03 mg/dL (0.72-1.25)
[2024-09-04 11:48] LABS: POTASSIUM 5.8 mmol/L (3.5-5.1)
[2024-09-04 14:41] LABS: CALCIUM 7.9 mg/dL (8.4-10.2); CREATININE, SERUM 3.94 mg/dL (0.72-1.25)
[2024-09-04 17:09] VITALS: TEMP 98.3
[2024-09-04 17:50] VITALS: BP 152/84; PULSE 62; RESP 18; O2SAT 98
== END | disposition home or self-care (01) ==
LOC: OR 10:08
PROVIDERS: ATTEND Internal Medicine Gastroenterology
DX: K22.2 Esophageal obstruction (principal); K29.50 Unspecified chronic gastritis without bleeding; K44.9 Diaphragmatic hernia without obstruction or gangrene; K21.9 Gastro-esophageal reflux disease without esophagitis; K31.89 Other diseases of stomach and duodenum; I10 Essential (primary) hypertension; I25.10 Atherosclerotic heart disease of native coronary artery without angina pectoris; E78.5 Hyperlipidemia, unspecified; I48.91 Unspecified atrial fibrillation; E11.9 Type 2 diabetes mellitus without complications; Z79.4 Long term (current) use of insulin; J45.909 Unspecified asthma, uncomplicated; G47.33 Obstructive sleep apnea (adult) (pediatric); Z99.81 Dependence on supplemental oxygen; Z94.0 Kidney transplant status; Z79.899 Other long term (current) drug therapy
CPT/HCPCS: 36415; 43239; 43249; 80048; 82948; 85025; 85610; 85730; 88305; 88342; J2003; J2250; J2704; J7040; 43450